=== PATIENT | male | born 1960 | race Caucasian/White ===

== ENCOUNTER 2017-04-25 18:35 | Inpatient (IN) | payer OTHER ==
--- NOTE | 2017-04-25 19:16 | CPEKG ---
Heart Rate: 74 RR Interval: 811 P-R Interval: 196 QRSD Interval: 94 QT Interval: 408 QTC Interval: 453 P [place]: 14 QRS [place]: 3 T Wave [place]: 85 EKG Severity - BORDERLINE ECG - EKG Impression: SINUS RHYTHM EKG Impression: PROBABLE LEFT ATRIAL ABNORMALITY EKG Impression: BORDERLINE R WAVE PROGRESSION, ANTERIOR LEADS Electronically Signed By: Karen Pedraza 25-Apr-2017 19:37:40
--- NOTE | 2017-04-25 19:30 | EDPHY ---
H & P Time Seen by Provider: 04/25/17 19:13 HPI/ROS: CHIEF COMPLAINT: Chest pain HISTORY OF PRESENT ILLNESS: 57 y/o male with cardiomyopathy presents with chest pressure. Onset of substernal pressure with exertion 6 weeks ago. Chest pain has gradually worsened and now occurs with walking short distances. while pushing a shopping cart for about 20ft today, he had chest pressure. He stopped and the cp resolved in a few minutes. His symptoms typically resolve within a few minutes with rest. No chest pain at rest. He is currently asymptomatic lying in bed. He has had left-sided chest pain for years, generally when lying down, but his current chest discomfort is different. He denies prior cardiac history or history of diabetes, hypertension, or hyperlipidemia, and he does not use tobacco products. He denies fever, recent illness or trauma, nausea, vomiting, syncope, diaphoresis or other associated symptoms. REVIEW OF SYSTEMS: A 10 point review of systems was performed and is negative with the exception of the elements mentioned in the history of present illness. Past Medical/Surgical History: Cardiomyopathy Social History: . at bedside. Nonsmoker. Lives in [place]. Smoking Status: Never smoked Physical Exam: General Appearance: Alert, pleasant Eyes: Pupils equal and round, no conjunctival pallor or injection ENT, Mouth: Mucous membranes moist Neck: Normal inspection Respiratory: Lungs are clear to auscultation Cardiovascular: Regular rate and rhythm Gastrointestinal: Abdomen is soft and non-tender Neurological: A&O, nonfocal, normal gait Skin: Warm and dry, no rash Extremities: Nontender, no pedal edema Psychiatric: Mood and affect normal Constitutional: Initial Vital Signs Temperature (C) 36.5 C 04/25/17 18:41 Heart Rate 70 04/25/17 18:41 Respiratory Rate 16 04/25/17 18:41 Blood Pressure 157/91 H 04/25/17 18:41 O2 Sat (%) 96 04/25/17 18:41 O2 Delivery Mode Room Air Allergies/Adverse Reactions: No Known Allergies Allergy (Unverified 04/25/17 18:44) Home Medications: Medication Instructions Recorded Allopurinol [Zyloprim] 300 mg PO DAILY 04/25/17 Indomethacin [Indocin 25 mg (*)] 50 mg PO DAILY 04/25/17 Medical Decision Making - Diagnostics EKG Interpretation: EKG interpreted by me reveals sinus rhythm, rate 74, PLAA, borderline R wave progression in ant. leads. Imaging Results: Chest x-ray independently reviewed by me: Cardiomegaly Imaging: I viewed and interpreted images myself ED Course/Re-evaluation: 57 y/o male presents with several week history of substernal chest pressure with exertion, c/w unstable angina. Plan to administer 325mg PO aspirin. IV established. Stat EKG reveals no evidence of ischemia or dysrhythmia. Recommended admission for further evaluation of the patient's chest pain and likely cardiac catheterization. 19:45 Consulted with hospitalist service. Dr. Patel accepts admission for chest pain. 19:[address] Maldonado, lead tinner. He will consult the patient. Troponin 0.046, indeterminate. Pt asymptomatic throughout his emergency department stay. 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 Differential Diagnosis: Differential diagnosis includes though it is not limited to pneumonia, pneumothorax, pulmonary embolism, aortic dissection, pericarditis, acute coronary syndrome. - Data Points Laboratory Results: Laboratory Results 04/25/17 19:30 04/25/17 19:30 Medications Given: Morphine Sulfate (Morphine) 1 - 2 mg IVP Q1HR PRN PRN Reason: Pain, Severe Unable to Take PO Stop: 05/05/17 21:37 Last Admin: 04/26/17 15:39 Dose: 2 mg Nitroglycerin (Nitrostat) 0.4 mg SL PRN PRN PRN Reason: Chest Pain Stop: 10/23/17 11:30 Last Admin: 04/26/17 15:32 Dose: 0.4 mg Discontinued Medications Aspirin (Aspirin) 324 mg PO EDNOW ONE Stop: 04/25/17 19:37 Last Admin: 04/25/17 19:44 Dose: 324 mg Aspirin Buffered (Aspirin Ec) 325 mg PO ONCALL ONE Stop: 04/26/17 11:32 Last Admin: 04/26/17 15:33 Dose: Not Given Diazepam (Valium) 5 mg PO ONCALL ONE Stop: 04/26/17 11:32 Last Admin: 04/26/17 15:33 Dose: Not Given Diphenhydramine HCl (Benadryl) 25 mg PO ONCALL ONE Stop: 04/26/17 11:32 Last Admin: 04/26/17 15:32 Dose: Not Given Famotidine (Pepcid) 20 mg PO ONCALL ONE Stop: 04/26/17 11:32 Last Admin: 04/26/17 15:32 Dose: Not Given Departure - Departure [facility] Acute Clinical Impression: Unstable angina Chest pain Qualifiers: Chest pain type: precordial pain Qualified Code(s): R07.2 - Precordial pain Condition: Fair Report Scribed for: Karen Pedraza Report Scribed by: Eleni Baumann Date of Report: 04/25/17 Time of Report: 19:27 Physician Review and Approval Statement: 04/25/17 19:27 Portions of this note were transcribed by a medical sales. I personally performed a history, physical exam, medical decision making, and confirmed accuracy of information the transcribed note.
[2017-04-25] MEDS ORDERED: ASPIRIN 81 MG CHEWABLE TAB PO ONE (19:36)
[2017-04-25 19:39] LABS: PLATELET COUNT 221 10^3/uL (150-400)
[2017-04-25] MEDS ORDERED: ONDANSETRON 4 MG/2 ML VIAL IVP PRN (21:38)
[2017-04-25] MEDS ORDERED: ONDANSETRON DISINTEGRATING 4 MG TAB PO PRN (21:38)
[2017-04-25] MEDS ORDERED: ACETAMINOPHEN 325 MG TAB PO PRN (21:38)
--- NOTE | 2017-04-25 21:54 | GHP ---
[f rep st] HISTORY AND PHYSICAL DATE OF ADMISSION: 04/25/2017 CHIEF COMPLAINT: Chest pain. HISTORY OF PRESENT ILLNESS: A 57-year-old male, who presents with 2 month history of chest pain with exertion. He says this is pressure-like or is unable to completely describe it. He says it is in t he center of his chest, not the left side and occurs reliably every time he walks several feet and it goes away with rest. He also has a little bit of chest pain at baseline but he says this is differe nt and has been there for some time. He has a history of a "cardiomyopathy" 30 years ago, but unsure about what the details of that are. No fevers or chills. He does have markedly decreased exercise tolerance due to his chest pain. REVIEW OF SYSTEMS: A 10-point review was obtained, otherwise was negative. PAST MEDICAL HISTORY: Cardiomyopathy, gout. MEDICATIONS: None. SOCIAL HISTORY: No smoking, 2 beers per day. FAMILY HISTORY: Positive for coronary disease and stroke. PHYSICAL EXAMINATION: VITAL SIGNS: Afebrile, blood pressure is 141/96, heart rate is 69, oxygen sat uration is 92% on room air. GENERAL: The patient is well developed, no apparent distress. HEENT: Nonicteric sclerae. Extraocular movements intact. Moist mucous membranes. NECK: Supple. No thyro megaly. LUNGS: Good effort. Clear to auscultation bilaterally. CARDIOVASCULAR: Regular rate and rhythm. No murmurs, gallops. ABDOMEN: Positive bowel sounds. Soft, nontender, nondistended. No h epatosplenomegaly. EXTREMITIES: No clubbing, cyanosis, or edema. SKIN: Without rash dry intact. NEUROLOGIC: Alert and oriented x3. Moving all 4 extremities equally. PSYCH: Normal mood and affec t. LABS: CBC is normal. Chemistries normal. There is a troponin that is elevated at 0.046. EKG perso vika reviewed and interpreted does show some ST-segment elevations in the anterior leads. ASSESSMENT: This is a 57-year-old male presenting with most likely unstable angina. PLAN: Unstable angina. Cardiology has been consulted. The patient does not have chest pain at rest and it has been going on for some time. I will not start on heparin but will make n.p.o. for probab le angiogram tomorrow. Cardiology has already been consulted. /[id number]/MODL
--- NOTE | 2017-04-26 09:05 | CPEKG ---
Heart Rate: 76 RR Interval: 789 P-R Interval: 188 QRSD Interval: 92 QT Interval: 400 QTC Interval: 450 P [place]: 18 QRS [place]: 1 T Wave [place]: 74 EKG Severity - BORDERLINE ECG - EKG Impression: SINUS RHYTHM EKG Impression: PROBABLE LEFT ATRIAL ABNORMALITY EKG Impression: LOW VOLTAGE IN FRONTAL LEADS EKG Impression: BORDERLINE R WAVE PROGRESSION, ANTERIOR LEADS Electronically Signed By: Judit Arias 26-Apr-2017 10:37:52
--- NOTE | 2017-04-26 10:57 | PDCARCONS ---
Cardiology Consult Reason for Consult: Chest discomfort/pressure (not pain) Chief Complaint: Chest tightness - progressive Requesting Physician: Hospitalists History of Present Illness: Patient is a 57 y/o male with unremarkable past cardiovascular history (no CAD, HTN, HLP, or DM), who presents to [facility] ER after being seen by PCP (Dr. Go Goodwin ) in the office, with recommendations for patient to be worked up in the ER. Work up in the ER setting with mild elevation in Troponin noted (0.04), but grossly normal ECG. Given the symptoms (chest pressure) and the troponin, the patient was admitted to the PCU. Hospitalist team saw the patient, and recommended coronary angiography with preceding cardiology consultation. In speaking with the patient today, chest discomfort is pressure, not pain. Location is just beneath the manubrium of the sternum. No radiation of the discomfort into the shoulder, neck, or jaw today. No fevers or chills. No PND or orthopnea. Symptoms have become more notable with less activity. Over the past six months, there has been progression of the symptoms. No lower extremity swelling has been noted. No dizziness or lightheadedness. No syncope. History of "thick heart" with echocardiography in the past (last echo was over 7 years ago with [facility]). Angiography in remote past without lluvia pathology noted. At present, the patient is able to have symptoms with very limited activity. Patient stated that the symptoms have been noted (and progressive over the past two months), but this summer, the patient thought back to his inability to mow a small lawn without needing to stop. No regular or routine exercise (given these symptoms). was present with the patient in the room today. History Information - Allergies/Home Medication List Allergies/Adverse Reactions: No Known Allergies Allergy (Unverified 04/25/17 18:44) Home Medications: Allopurinol [Zyloprim] 300 mg PO DAILY 04/25/17 [Last Taken 04/25/17] Indomethacin [Indocin 25 mg (*)] 50 mg PO DAILY 04/25/17 [Last Taken 04/25/17] I have personally reviewed and updated: family history, medical history, social history, surgical history Past Medical History: - Past Medical History Additional medical history: "cardiomyopathy" (thick heart) - Family History Positive for: CAD, hypertension, stroke - Social History Smoking Status: Never smoked Alcohol Use: Occasionally Drug Use: None Cardiac History - Cardiac History Cardiac Risk Factors: male Timing/Duration: Weeks Severity: moderate Severity Scale: 10 Location: substernal Activities at Onset: activity Modifying Factors: improves with: lying down, rest Physical Exam Physical Exam: Temp Pulse Resp BP Pulse Ox 36.8 C 83 19 125/82 H 95 04/26/17 09:01 04/26/17 09:01 04/26/17 09:01 04/26/17 09:01 04/26/17 09:01 Constitutional: no apparent distress, appears nourished, obese Eyes: PERRL Ears, Nose, Mouth, Throat: moist mucous membranes Cardiovascular: regular rate and rhythym, systolic murmur, pulses symmetric bilaterally, No JVD, No edema Peripheral Pulses: 2+: dorsalis-pedis (R), dorsalis-pedis (L) Respiratory: no respiratory distress, no rales or rhonchi, clear to auscultation Gastrointestinal: normoactive bowel sounds Skin: warm, No rash Musculoskeletal: full muscle strength, no muscle tenderness, normal joint ROM Neurologic: AAOx3, sensation intact bilaterally, CN II-XII Intact Psychiatric: interacting appropriately, not anxious, not encephalopathic Lab and Imaging 04/25/17 19:30 04/25/17 19:30 WBC 7.02 10^3/uL (3.80-9.50) 04/25/17 19:30 RBC 4.94 10^6/uL (4.40-6.38) 04/25/17 19:30 Hgb 15.7 g/dL (13.7-17.5) 04/25/17 19:30 Hct 44.5 % (40.0-51.0) 04/25/17 19:30 MCV 90.1 fL (81.5-99.8) 04/25/17 19:30 MCH 31.8 pg (27.9-34.1) 04/25/17 19:30 MCHC 35.3 g/dL (32.4-36.7) 04/25/17 19:30 RDW 13.0 % (11.5-15.2) 04/25/17 19:30 Plt Count 221 10^3/uL (150-400) 04/25/17 19:30 MPV 10.6 fL (8.7-11.7) 04/25/17 19:30 Neut % (Auto) 55.0 % (39.3-74.2) 04/25/17 19:30 Lymph % (Auto) 34.6 % (15.0-45.0) 04/25/17 19:30 [place] % (Auto) 6.7 % (4.5-13.0) 04/25/17 19:30 Eos % (Auto) 2.8 % (0.6-7.6) 04/25/17 19:30 Baso % (Auto) 0.6 % (0.3-1.7) 04/25/17 19:30 Nucleat RBC Rel Count 0.0 % (0.0-0.2) 04/25/17 19:30 Absolute Neuts (auto) 3.86 10^3/uL (1.70-6.50) 04/25/17 19:30 Absolute Lymphs (auto) 2.43 10^3/uL (1.00-3.00) 04/25/17 19:30 Absolute Monos (auto) 0.47 10^3/uL (0.30-0.80) 04/25/17 19:30 Absolute Eos (auto) 0.20 10^3/uL (0.03-0.40) 04/25/17 19:30 Absolute Basos (auto) 0.04 10^3/uL (0.02-0.10) 04/25/17 19:30 Absolute Nucleated RBC 0.00 10^3/uL (0-0.01) 04/25/17 19:30 Immature Gran % 0.3 % (0.0-1.1) 04/25/17 19:30 Immature Gran # 0.02 10^3/uL (0.00-0.10) 04/25/17 19:30 Sodium 141 mEq/L (134-144) 04/25/17 19:30 Potassium 4.2 mEq/L (3.5-5.2) 04/25/17 19:30 Chloride 105 mEq/L (97-110) 04/25/17 19:30 Carbon Dioxide 23 mEq/l (22-31) 04/25/17 19:30 Anion Gap 13 mEq/L (8-16) 04/25/17 19:30 BUN 16 mg/dL (7-23) 04/25/17 19:30 Creatinine 1.0 mg/dL (0.7-1.3) 04/25/17 19:30 Estimated GFR > 60 04/25/17 19:30 Glucose 89 mg/dL (70-100) 04/25/17 19:30 Hemoglobin A1c 6.2 % (4.0-6.0) H 04/26/17 07:10 Estim Average Glucose 131 mg/dL (68-126) H 04/26/17 07:10 Calcium 9.9 mg/dL (8.5-10.4) 04/25/17 19:30 Troponin I 0.041 ng/mL (0.000-0.034) H 04/26/17 07:10 Triglycerides 173 mg/dL (40-150) H 04/26/17 07:10 Cholesterol 256 mg/dL (140-220) H 04/26/17 07:10 Cholesterol Risk Factr 1.8 (0.2-1.0) H 04/26/17 07:10 LDL Cholesterol, Calc 186 mg/dL (80-100) H 04/26/17 07:10 LDL Risk Factor 1.6 (0.2-1.0) H 04/26/17 07:10 VLDL Cholesterol 34 mg/dL (8-25) H 04/26/17 07:10 Non-HDL Cholesterol 220 mg/dL (90-129) H 04/26/17 07:10 HDL Cholesterol 36 mg/dL (40-65) L 04/26/17 07:10 LDL/HDL Ratio 5.17 RATIO (1.00-3.64) H 04/26/17 07:10 Cholesterol/HDL Ratio 7.11 RATIO (1.00-4.97) H 04/26/17 07:10 Visualized and Interpreted Chest x-ray results: Yes Chest X-ray Interpretation: normal, normal heart size Visualized and Interpreted EKG results: Yes EKG Interpretation: Positive for: normal sinsus rhythm, NS ST wave abnormalities Telemetry: normal sinus rhythm Echocardiogram: normal LVEF, moderate to severe LVH, no clear valve pathology A/P Assessment: Patient is a 57 y/o male with history of "cardiomyopathy", thought to be hypertrophic, but this word did not resonate with the patient, and HLP ( untreated), who presented to PCP with complaints of chest pressure (no pain). Progressive symptoms have been noted, and activity has been severely limited by the presence of this symptom. Symptom has been notable for the past six week, but further discussion with the patient is more along the lines of months to years. Troponin elevation beyond baseline has been noted (<0.05) with non specific ST/T wave changes noted. Echocardiography today with moderate to severe LVH noted. Gradients at rest were not noted to be extremely elevated. No stress testing in recent past. Last echocardiogram was likely over seven years ago. Hospitalists with desire for angiography, which we feel is appropriate given HLP, age, sex, ECG changes, troponin elevation, and noted symptoms. Plan: Several options were discussed with the patient - non invasive MPI testing and angiography. Risks and benefits of both were addressed. More conclusive test is angiography. Consents have been signed. Will proceed with this diagnostic procedure. Given the elevation in HLP noted, would begin statins (Crestor at 10 mg is recommended). ASA therapy (81 mg per day) is also recommended for this male over the age of 50.
[2017-04-26] MEDS ORDERED: DIAZEPAM 5 MG TAB PO ONE (11:31)
[2017-04-26] MEDS ORDERED: TEMAZEPAM 15 MG CAP PO PRN (11:31)
[2017-04-26] MEDS ORDERED: diphenhydrAMINE 25 MG CAP PO ONE (11:31)
[2017-04-26] MEDS ORDERED: NITROGLYCERIN 0.4 MG BTL SL PRN (11:31)
[2017-04-26] MEDS ORDERED: FAMOTIDINE 20 MG TAB PO ONE (11:31)
[2017-04-26] MEDS ORDERED: ASPIRIN EC 325 MG TAB PO ONE (11:31)
--- NOTE | 2017-04-26 11:44 | CPEKG ---
Heart Rate: 80 RR Interval: 750 P-R Interval: 192 QRSD Interval: 92 QT Interval: 388 QTC Interval: 448 P [place]: 15 QRS [place]: -16 T Wave [place]: 88 EKG Severity - ABNORMAL ECG - EKG Impression: SINUS RHYTHM EKG Impression: LEFT ATRIAL ABNORMALITY EKG Impression: BORDERLINE LEFT AXIS DEVIATION EKG Impression: LOW VOLTAGE IN FRONTAL LEADS EKG Impression: CONSIDER ANTERIOR INFARCT Electronically Signed By: Judit Arias 26-Apr-2017 17:03:35
[2017-04-26] MEDS ORDERED: NS 1,000 ML IV SCH (11:45)
[2017-04-26] MEDS ORDERED: MIDAZOLAM 2 MG/2 ML VIAL ONE (12:06)
[2017-04-26] MEDS ORDERED: LIDOCAINE 1% 300 MG/30 ML SDV ONE (12:06)
[2017-04-26] MEDS ORDERED: fentaNYL 100 MCG/2 ML INJ ONE (12:06)
[2017-04-26] MEDS ORDERED: IOPAMIDOL (ISOVUE-370) 150 ML BTL IV ONE (12:07)
--- NOTE | 2017-04-26 12:26 | PDPROPOC ---
Sedation Plan of Care Sedation Plan of Care: vital signs stable, mental status noted, patient educated of risks, benefits, alternatives, patient can tolerate sedation ASA Classification: ASA 2 Planned drugs: fentanyl, midazolam Mallampati Score: Class 1 Mallampati Reference Image: Patient passed 3-3-2 rule?: Yes
--- NOTE | 2017-04-26 14:11 | ASMTCMCOM ---
CM Note CM Note Notes: Reviewed chart,pt here with chest pain, will have angiogram today. anticipate dc home independantly when medically stable. CM avail for any changes/needs. Date Signed: 04/26/2017 02:11 PM Electronically Signed By:Berenice Cervantes RN
[2017-04-26] MEDS ORDERED: ATROPINE SULFATE 1 MG/10 ML SYR IVP PRN (14:44)
--- NOTE | 2017-04-26 14:50 | PDDXCAT ---
Diagnostic Cath Note - . Date: 04/26/17 Hatchery Supervisor: Yazmin Indication: Class III or IV angina, which improves to class I/II w medical therapy - Procedure Access: right groin Procedure: left heart catheterization, coronary angiography - Materials Left Heart Cath size: 6F Left Heart Cath materials: JL4.0, JR4.0 - Findings-Left Heart Catheterization LM: Medium diameter vessel, moderate length. Distal lesion of 40-50% LAD: Medium diameter vessel with early D1 and D2 take off. In the ostium of the LAD (involved with the distal LM), there was an 80% lesion. Diffuse disease of 40-50% was noted. There was a 50% mid LAD lesion noted. LCX: Medium caliber vessel. Principal branch was OM2 with 80% proximal lesion and 60% mid lesion. OM1 was very small. Mid to distal LCX was small to medium caliber vessel. RCA: Dominant vessel with large caliber. In the prox/mid location, there is a 95% stenosis noted. Right to left collaterals were noted. EDP: not assessed LVEF: not assessed (by echo, normal LVEF was noted with moderate to severe LVH) Wall motion: not assessed Complications: none Estimated blood loss: <50ml Closure method: manual pressure Assessment: 57 y/o male with likely hypertrophic cardiomyopathy, HLP (untreated) , and difficult, critical, multivessel CAD (LM, LAD, LCX/OM, and RCA). I did not perform left ventriculogram given echo with moderate to severe concentric left ventricular hypertrophy and normal LVEF (so no need for potential arrhythmic pigtail catheter placement). Surgery consulted for CABG Plan: CABG evaluation given the severe, multi vessel CAD noted. Intervention: none Patient Problems: Problems Problem Status Onset Chest pain Acute
--- NOTE | 2017-04-26 15:40 | HOSPPROG ---
Hospitalist Progress Note Assessment/Plan: DIAGNOSES: -progressive unstable angina pectoralis -diffuse severe coronary artery disease on angiogram today, 95% right, 80% lad and circ, 50% left main -severe LVH or other hypertrophic cardiomyopathy based on echo done elsewhere recently; preserved ejection fraction -untreated hyperlipidemia LDL 180 -"pre diabetes" suspected insulin resistance with hemoglobin A1c 6.2 I reviewed the patient's progress, test results, and care plan in detail with Dr. Arce today. Surgical assessment is clearly indicated I reviewed the angiogram results with the patient and his family at the bedside today and discuss with them that he will need revascularization, he will probably need to have more conversation with Dr. 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 Aburto is planning on CABG in 2 days -monitor blood sugars, diabetic diet SUBJECTIVE: The patient is back from coronary angiography at this time. Currently he is lying flat on his back for healing time for his groin access, complaints of a left-sided anterior chest pain which he says he has gotten whenever he lies on his back for the last 20 years. He has had multiple assessments for this and it has no known cost and is not related to his angina, currently what he feels is typical of this chronic symptom. He had been given some nitroglycerin and some morphine by his nurse which have not improved the symptom. He is not having any of what feels like his typical exertional angina at this time with no shortness of breath and no nausea either. Otherwise feels fine. No discomfort at his groin access site OBJECTIVE Vitals reviewed: Stable without fever [employer], my review: Sinus Exam: alert oriented looks uncomfortable due to the chest pain as mentioned above skin warm dry color ok resps not labored lungs clear BSs heart regular abd soft nondistended nontender, bowel sounds present limbs warm, no edema iv site ok Laboratory data: Troponins flat at 0.04, otherwise can on CBC unremarkable. Hemoglobin A1c at 6 Coronary angiography done today by Dr. Arce, I reviewed with Dr. Arce and there is diffuse severe coronary artery disease in LAD right circ and left main. Angiography was well tolerated Repeat EKG today, my review of tracing sinus rhythm with no acute ischemic in changes low inferior lead voltages Objective: Vital Signs Temp Pulse Resp BP Pulse Ox 36.6 C 80 17 144/85 H 94 04/26/17 11:33 04/26/17 11:33 04/26/17 11:33 04/26/17 11:33 04/26/17 11:33 04/25/17 04/26/17 04/27/17 06:59 06:59 06:59 Intake Total 100 Balance 100 - Time Spent With Patient Time Spent with Patient: greater than 35 minutes Time Spent with Patient: Greater than 35 minutes spent on this patients care, greater than 50% of time spent counseling, educating, and coordinating care regarding the above mentioned plan. ICD10 Worksheet Patient Problems: Problems Problem Status Onset Chest pain Acute
--- NOTE | 2017-04-26 16:48 | GCON ---
[f rep st] CONSULTATION DATE OF CONSULTATION: 04/26/2017 IMPRESSION: 1. Non-Q-wave infarction with severe 3-vessel disease. 2. HOCM without systolic anterior motion. 3. Uncontrolled hypertension. 4. Uncontrolled hypercholesterolemia. 5. Gout. RECOMMENDATIONS: This gentleman should stay in house and undergo coronary artery revascularization. Consideration could be given to stress echo on the table during surgery to see if we can elicit outf low obstruction, in which case I would proceed with septal myectomy at the same time. Dr. Arshad will be covering in my absence and will proceed with surgery in the next day or 2 unless symptoms change this evening while I am on-call. Patient is still somewhat somnolent, although the and son were present, very cooperative, very p leasant and fully informed by Cardiology. The previous medical history is for known thickened heart with cardiomyopathy for which he quit medic ations, presumably beta-blockers, and has had no followup. The suspects he has uncontrolled hyp ertension. He does have moderate alcohol abuse with at least 4 beers per day on a regular daily basi s without withdrawal symptoms or history of withdrawal. ALLERGIES: Has no known allergies. MEDICATIONS: On admission were Zyloprim and Indocin. SOCIAL HISTORY: He never smoked. FAMILY HISTORY: Positive for coronary disease, hypertension, stroke. PHYSICAL EXAMINATION: GENERAL: Obese gentleman lying supine in bed. No apparent distress. VITAL S IGNS: Blood pressure is 160/110, heart rate 76, respirations 12, nonlabored. HEENT: Normocephalic, ESTHER, EOMI. NECK: Without bruit. HEART: Rate is regular without murmur, S3 or S4. LUNGS: Clear. A BDOMEN: Protuberant, nontender. Bowel sounds are active. EXTREMITIES: Have 2+ pedal pulses. No eddi ma. No varicosities. RECTAL AND GENITAL: Deferred. Please see cath report for details. /[id number]/MODL
--- NOTE | 2017-04-26 17:11 | ASMTCMCOM ---
CM Note CM Note Notes: Pt's angiogram today showed sever CAD per progress note; Dr Aburto has consulted and pt will likely go for OHS in next couple days. Pt's and son here today and were able to discuss w/. DUANE w/f. Date Signed: 04/26/2017 05:10 PM Electronically Signed By:Berenice Cervantes RN
--- NOTE | 2017-04-26 19:46 | HOSPPROG ---
Hospitalist Progress Note Assessment/Plan: DIAGNOSES: -progressive unstable angina pectoralis -diffuse severe coronary artery disease on angiogram today, 95% right, 80% lad and circ, 50% left main -severe LVH or other hypertrophic cardiomyopathy based on echo done elsewhere recently; preserved ejection fraction -untreated hyperlipidemia LDL 180 -"pre diabetes" suspected insulin resistance with hemoglobin A1c 6.2 I reviewed the patient's progress, test results, and care plan in detail with Dr. Arce today. Surgical assessment is clearly indicated I reviewed the angiogram results with the patient and his family at the bedside today and discuss with them that he will need revascularization, he will probably need to have more conversation with Dr. Aburto -he does not have any recollection of his previous conversation today likely due to persisting affects of sedation for his angio Patient will need to remain hospitalized until his bypass surgery in 2 days, will need changed inpatient status PLANS: -continue antianginal therapies and aspirin -statin therapy -continue cardiac telemetry monitor -inpatient Cardiac surgery consultation, it sounds like Dr. Aburto is planning on CABG in 2 days -monitor blood sugars, diabetic diet SUBJECTIVE: The patient is back from coronary angiography at this time. Currently he is lying flat on his back for healing time for his groin access, complaints of a left-sided anterior chest pain which he says he has gotten whenever he lies on his back for the last 20 years. He has had multiple assessments for this and it has no known cost and is not related to his angina, currently what he feels is typical of this chronic symptom. He had been given some nitroglycerin and some morphine by his nurse which have not improved the symptom. He is not having any of what feels like his typical exertional angina at this time with no shortness of breath and no nausea either. Otherwise feels fine. 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 Hemoglobin A1c at 6 Coronary angiography done today by Dr. Arce, I reviewed with Dr. Arce and there is diffuse severe coronary artery disease in LAD right circ and left main. Angiography was well tolerated Repeat EKG today, my review of tracing sinus rhythm with no acute ischemic in changes low inferior lead voltages Objective: Vital Signs Temp Pulse Resp BP Pulse Ox 36.7 C 84 18 150/103 H 93 04/26/17 15:57 04/26/17 15:57 04/26/17 15:57 04/26/17 15:57 04/26/17 15:57 04/25/17 04/26/17 04/27/17 06:59 06:59 06:59 Intake Total 100 Balance 100 ICD10 Worksheet Patient Problems: Problems Problem Status Onset Chest pain Acute
[2017-04-27] MEDS: ATORVASTATIN CALCIUM 40 MG TAB PO SCH (09:03)
--- NOTE | 2017-04-27 09:23 | PDCARPN ---
Cardiology Progress Note Chief Complaint: No cardiovascular complaints (no chest pains or pressure) Assessment/Plan: Assessment: Patient is a 57 y/o male with history of "cardiomyopathy" in the remote past with complaints of chest "pressure". Work up with this admission has revealed both HLP and critical CAD by angiography. Echocardiography with moderate to severe LVH (concerning for HOCM). Patient is scheduled for multivessel CABG tomorrow. No cardiovascular complaints were voiced this morning. No chest pains or pressure, no PND or orthopnea. was present with the patient in the room today. Plan: (1) CABG tomorrow (2) Preoperative assessments today are pending (3) Would being therapy on statins given the elevation in FLP that are noted (4) Cardiac rehab to see patient post operatively (5) Lifestyle changes will be needed (diet, exercise, stressors from work, sleep patterns, weight loss) I did speak with the patient's son about HLP and the HOCM concerns yesterday. Subjective: No cardiovascular complaints today Reviewed/Discussed With: family, hospitalist, multidisciplinary team Objective: Vital Signs (8 Hrs) Temp Pulse Resp BP Pulse Ox 04/27/17 07:32 37.1 C 75 16 121/70 H 92 04/27/17 03:00 37.1 C 73 16 127/75 H 91 L Intake/Output (24 Hrs) 04/26/17 04/27/17 04/28/17 05:59 05:59 05:59 Intake Total 100 Balance 100 Intake: Oral (ml) 100 Other: Weight 103.6 kg Intake Quantity Yes Sufficient Number of Voids Toilet 1 Result Diagrams: 04/25/17 19:30 04/25/17 19:30 Cardiac Labs: Cardiac Lab Results (72 Hrs) 04/26/17 04/25/17 07:10 23:59 Troponin I 0.041 H 0.042 H Telemetry: Normal sinus rhythm at 70-75 bpm - Physical Exam Constitutional: WDWN, healthy appearing, no apparent distress, obese Eyes: PERRL, EOMI Ears, Nose, Mouth, Throat: moist mucous membranes Cardiovascular: regular rate and rhythm, no rubs, systolic murmur, pulses symmetric bilat, No jugular vein distention Peripheral Pulses: 2+: dorsalis-pedis (R), dorsalis-pedis (L) Respiratory: clear to auscultate bilat, no crackles, no wheezes Gastrointestinal: normoactive bowel sounds Skin: no rashes, no edema Musculoskeletal: no muscular tenderness Neurologic: AAOx3, CN II-XII grossly intact Psychiatric: cooperative, interactive, following commands ICD10 Worksheet Patient Problems: Problems Problem Status Onset Chest pain Acute Unstable angina Acute
--- NOTE | 2017-04-27 10:00 | ECHO ---
[email or web address] [address] [address] Main: [phone] Fax: Transthoracic Echocardiogram Name: LUIS ALBERTO HUA MR#: [id number] Study Date: 04/26/2017 Study Time: 10:25 AM Date of : 1960 Age: 57 year(s) Height: 175.3 cm (69 in.) Weight: 103.42 kg (228 lb.) BSA: 2.18 m2 Gender: Male Examination: Echo Indication: Chest Pain Image Quality: Contrast: Requested by: Paul Arce BP: 125 mmHg/82 mmHg Heart Rate: Rhythm: Normal sinus rhythm Indication: Chest Pain Procedure Staff Customer Field Representative: Gary Wilhelm Reading Physician: Cruz Cramer Requesting Provider: Conclusions: Normal size left ventricle. Severe concentric LV hypertrophy. Normal global systolic LV function. EF is 70 %. No regional wall motion abnormality. Diastolic dysfunction is present. . There is no obvious LVOT gradient by doppler and colorflow doppler.. Trivial mitral valve regurgitation. No pericardial effusion. Measurements: Chambers Valvular Assessment AV/MV Valvular Assessment TV/PV Normal Normal Normal Name Value Range Name Value Range Name Value Range Ao Mariana (MM): 3.1 cm (2.2 cm-3.7 AV Vmax: 1.40 m/s (1 m/s-1.7 PV Vmax: 1.17 m/s (0.6 m/s-0.9 cm) m/s) m/s) IVSd (2D): 2.3 cm (0.6 cm-1.1 AV maxP mmHg ( - ) PV PGmax: 5 mmHg ( - ) cm) AV meanP mmHg ( - ) LVDd (2D): 4.4 cm (4.2 cm-5.9 LVOT Vmax: 0.91 m/s (0.7 m/s-1.1 cm) m/s) LVDs (2D): 2.9 cm (2.1 cm-4 MV E Vmax: 0.37 m/s ( - ) cm) MV A Vmax: 0.62 m/s ( - ) LVPWd (2D): 1.8 cm (0.6 cm-1 MV E/A: 0.60 ( - ) cm) LVEF (MM): 70 (>=55 %) Continued Measurements: Chambers Valvular Assessment AV/MV Name Value Name Value Patient: LUIS ALBERTO HUA Study Date: 04/26/2017 Page 1 of 2 10:25 AM LADs Lon.6 cm MV E' Septal: 0.04 m/s LA Area: 16.5 cm2 MV E/E' Septal: 9.70 MV E/E' Lateral: 8.80 Findings: Left Ventricle: Normal size left ventricle. Severe concentric LV hypertrophy. Normal global systolic LV function. EF is 70 %. No regional wall motion abnormality. Diastolic dysfunction is present. . There is no obvious LVOT gradient by doppler and colorflow doppler.. Right Ventricle: Normal size right ventricle. Left Atrium: The left atrium is normal in size. Right Atrium: The right atrium is normal in size. Mitral Valve: The mitral valve is normal in appearance and function. Trivial mitral valve regurgitation. Aortic Valve: The aortic valve is tri-leaflet. The aortic valve is normal in appearance and function. Tricuspid Valve: The tricuspid valve is normal in appearance and function. Pulmonic Valve: The pulmonic valve is normal in appearance and function. Trivial pulmonic valve regurgitation. Aorta: The aorta is normal. Pericardium: No pericardial effusion. (No Signature Object) Patient: LUIS ALBERTO HUA Study Date: 04/26/2017 Page 2 of 2 10:25 AM [id number]
[2017-04-27] MEDS: ALLOPURINOL 300 MG TAB PO SCH (10:22)
[2017-04-27] MEDS ORDERED: INDOMETHACIN 25 MG CAP PO SCH (12:00)
--- NOTE | 2017-04-27 13:17 | HOSPPROG ---
Hospitalist Progress Note Assessment/Plan: Unstable angina in setting of critical multi-vessel CAD - trop flat. Chest pain free today. -CABG tomorrow per CV surgery -start ASA -cont statin Hypertrophic CM - cards following Hypertension - fair control. likely warrants BB at some point post-operatively , will defer to CV surg Hyperlipidemia - LDL 186, cont statin. Gout - cont allopurinol and indocin H/O etoh - no e/o withdrawal Full code Dispo - cont inpt Subjective: Pt feels fine. No CP or SOB. UP in chair, working. Objective: Vital Signs Temp Pulse Resp BP Pulse Ox 36.5 C 86 12 151/91 H 91 L 04/27/17 11:35 04/27/17 11:35 04/27/17 11:35 04/27/17 11:35 04/27/17 11:35 - Physical Exam Constitutional: no apparent distress Eyes: PERRL Ears, Nose, Mouth, Throat: moist mucous membranes Cardiovascular: regular rate and rhythym Respiratory: no respiratory distress, clear to auscultation Gastrointestinal: normoactive bowel sounds, soft, non-tender abdomen Skin: warm Musculoskeletal: full muscle strength Neurologic: AAOx3 Psychiatric: interacting appropriately ICD10 Worksheet Patient Problems: Problems Problem Status Onset Chest pain Acute Unstable angina Acute
[2017-04-27] MEDS: ASPIRIN EC 81 MG TAB PO SCH (14:21)
--- NOTE | 2017-04-27 17:46 | PDMN ---
Medical Necessity Medical necessity: Patient meets INPT criteria per physician note and MCG M-40 Angina, will change to S-390 CABG after surgery (progressive chest pressure/ unstable angina w/mild troponin elevation; mod to severe LVH on echo; cardiac cath shows multivessel CAD; will need inpatient monitoring until planned CABG; LOS will be > 2 midnights.)
[2017-04-27] MEDS ORDERED: CHLORHEXIDINE GLUC HIBICLENS 118 ML BTL TP SCH (21:00)
[2017-04-28] MEDS ORDERED: PROTAMINE SULFATE 50 MG/5 ML VIAL IVP ONE (04:29)
[2017-04-28] MEDS ORDERED: MILRINONE/DEXTROSE/100 ML BAG IV ONE (04:30)
[2017-04-28] MEDS ORDERED: CALCIUM CHLORIDE 1 GM/10 ML INJ ONE ×2 (04:30→04:35)
[2017-04-28] MEDS ORDERED: niCARdipine/NACL/200 ML BAG IV ONE (04:32)
[2017-04-28] MEDS ORDERED: NA BICARBONATE 50 MEQ/50 ML VIAL ONE (04:32)
[2017-04-28] MEDS ORDERED: HEPARIN 10,000 UNIT/10 ML MDV ONE ×2 (04:32→04:35)
[2017-04-28] MEDS ORDERED: DOPamine/DEXTROSE/250 ML BAG IV ONE (04:32)
[2017-04-28] MEDS ORDERED: ADENOSINE 6 MG/2 ML VIAL ONE (04:33)
[2017-04-28] MEDS ORDERED: AMIODARONE HCL 150 MG/3 ML VIAL ONE ×2 (04:33→04:36)
[2017-04-28] MEDS ORDERED: ceFAZolin 1 GM VIAL ONE (04:34)
[2017-04-28] MEDS ORDERED: ALBUMIN 5% 250 ML BOTTLE IV ONE ×2 (04:34→13:30)
[2017-04-28] MEDS ORDERED: LIDOCAINE 2% 100 MG/5 ML SYR ONE (04:35)
[2017-04-28] MEDS ORDERED: MAGNESIUM SULFATE 1 GM/2 ML VIAL ONE (04:36)
[2017-04-28] MEDS ORDERED: CITRATE DEXTROSE SOLN 500 ML BAG ONE (04:36)
[2017-04-28] MEDS ORDERED: methylPREDNISolone SOD SUCC 1 GM/8 ML VIAL ONE (04:37)
[2017-04-28] MEDS ORDERED: VERAPAMIL 5 MG, NITROGLYCERIN 2.5 MG, HEPARIN 500 UNIT, SODIUM BICARBONATE 0.2 MEQ in L... MISC ONE (06:00)
[2017-04-28] MEDS ORDERED: MUPIROCIN 2% 22 GM OINT NS ONE (06:00)
[2017-04-28] MEDS ORDERED: ceFAZolin 2 GM/SWFI 2 GM/20 ML SYR IVP ONE (06:00)
[2017-04-28] MEDS ORDERED: NOREPINEPHRINE BITARTRATE 16 MG in NS 250 ML IV ONE (06:00)
[2017-04-28] MEDS ORDERED: SODIUM BICARBONATE 20 MEQ, LIDOCAINE 1% 10 ML in NORMOSOL-R 1,000 ML MISC ONE (06:00)
[2017-04-28] MEDS ORDERED: INSULIN REGULAR HUMAN 100 UNIT in NS 100 ML IV ONE (06:00)
[2017-04-28] MEDS ORDERED: MANNITOL 25% 12.5 GM/50 ML VIAL IVP ONE (06:00)
[2017-04-28] MEDS ORDERED: PAPAVERINE HCL 60 MG in NS 100 ML IV ONE (06:00)
[2017-04-28] MEDS ORDERED: PHENYLEPHRINE HCL 50 MG in NS 250 ML IV ONE (06:00)
[2017-04-28] MEDS ORDERED: CITRATE DEXTROSE SOLN 500 ML BAG MISC ONE (06:00)
[2017-04-28] MEDS ORDERED: AMINOCAPROIC ACID 5 GM/20 ML VIAL IV ONE (06:00)
[2017-04-28] MEDS ORDERED: VANCOMYCIN 1 GM VIAL ONE (06:53)
--- NOTE | 2017-04-28 07:17 | PDHPUP ---
History & Physical Update H&P update statement: This history and physical update is based on an assessment of the patient which was completed after admission or registration (within 24 hours), but prior to the surgery/procedure. H&P update: H&P reviewed & patient examined, no change in patient's condition since H&P completed
[2017-04-28] MEDS ORDERED: MIDAZOLAM 2 MG/2 ML VIAL IVP ONE (07:53)
[2017-04-28] MEDS ORDERED: fentaNYL 250 MCG/5 ML INJ ONE ×2 (07:56)
[2017-04-28] MEDS ORDERED: PROPOFOL/EMULSION 500 MG/50 ML BOTTLE IV ONE (07:57)
[2017-04-28] MEDS ORDERED: KETAMINE 100 MG/10 ML SYR ONE (09:02)
--- NOTE | 2017-04-28 09:24 | PDANEPAE ---
ANE History of Present Illness here for CABG ANE Past Medical History - Cardiovascular History Hx Hypertension: Yes Hx Arrhythmias: No Hx Chest Pain: Yes Hx Coronary Artery / Peripheral Vascular Disease: Yes Hx CHF / Valvular Disease: No Hx Palpitations: No - Pulmonary History Hx COPD: No Hx Asthma/Reactive Airway Disease: No Hx Recent Upper Respiratory Infection: No Hx Oxygen in Use at Home: No Hx Sleep Apnea: No Sleep Apnea Screening Result - Last Documented: Positive - Endocrine History Hx Diabetes: No Hypothyroid: No Hyperthyroid: No - Renal History Hx Renal Disorders: No - Liver History Hx Hepatic Disorders: No - Neurological & Psychiatric Hx Hx Neurological and Psychiatric Disorders: No - Chronic Pain History Chronic Pain: No ANE Review of Systems Review of systems is: negative Review of Systems: - Exercise capacity Exercise capacity: <4 METS ANE Patient History - Allergies Allergies/Adverse Reactions: No Known Allergies Allergy (Unverified 04/25/17 18:44) - Home Medications Home medications: home medication list seen and reviewed Home Medications: Allopurinol [Zyloprim] 300 mg PO DAILY 04/25/17 [Last Taken 04/25/17] Indomethacin [Indocin 25 mg (*)] 50 mg PO DAILY 04/25/17 [Last Taken 04/25/17] - NPO status NPO Status: no food or drink >8 hours NPO Since - Liquids (Date): 04/28/17 NPO Since - Liquids (Time): 00:00 NPO Since - Solids (Date): 04/28/17 NPO Since - Solids (Time): 00:00 - Anes Hx Anes Hx: no prior problems - Smoking Hx Smoking Status: Never smoked - Alcohol Use Alcohol Use: Occasionally ANE Labs/Vital Signs - Labs Result Diagrams: 04/25/17 19:30 04/25/17 19:30 - Vital Signs Vital Signs: reviewed preoperatively; see RN documention for details Blood Pressure: 137/84 Heart Rate: 74 Respiratory Rate: 13 O2 Sat (%): 94 Height: 175.26 cm Weight: 99.9 kg ANE Physical Exam - Airway Neck exam: FROM Mallampati Score: Class 1 - Pulmonary Pulmonary: no respiratory distress - Cardiovascular Cardiovascular: regular rate and rhythym - ASA Status ASA Status: IV ANE Anesthesia Plan Anesthesia Plan: general endotracheal anesthesia Lines/Monitors: arterial line, central line, JUAN
[2017-04-28] MEDS ORDERED: MAGNESIUM SULF 2 GM/WATER 50 ML BAG IV ONE (11:13)
[2017-04-28] MEDS ORDERED: HYDROmorphONE/DILAUDID 2 MG/ML INJ ONE (12:12)
[2017-04-28] MEDS: ALLOPURINOL 300 MG TAB PO SCH (12:15)
[2017-04-28] MEDS: ASPIRIN EC 81 MG TAB PO SCH (12:16)
--- NOTE | 2017-04-28 12:37 | POSTOPPROG ---
Post Op Note Date of Operation: 04/28/17 Surgeon: Martínez Arshad Manager Services: Joselyn Anesthesia: GET(General Endotracheal) Pre-op Diagnosis: Coronary artery disease Post-op Diagnosis: Same Indication: CAD Procedure: CABG x 3 w/ SVG - OM, CASANOVA - LAD, skeletonized JERMAINE - RCA Findings: Severe LVH Inf/Abcess present in the surg proc area at time of surgery?: No EBL: Minimal Complications: none
[2017-04-28] MEDS ORDERED: METOCLOPRAMIDE 10 MG/2 ML VIAL IVP PRN (12:55)
[2017-04-28] MEDS ORDERED: MAGNESIUM HYDROXIDE 30 ML UDCUP PO PRN (12:55)
[2017-04-28] MEDS ORDERED: D50W 25 GM/50 ML SYR IVP PRN (12:55)
[2017-04-28] MEDS ORDERED: SODIUM CL NASAL 45 ML BTL EACHNARE PRN (12:55)
[2017-04-28] MEDS ORDERED: POTASSIUM Cl (KCl) 50 ML IV PRN (12:55)
[2017-04-28] MEDS ORDERED: ACETAMINOPHEN 650 MG SUPP PR PRN (12:55)
[2017-04-28] MEDS ORDERED: LACTULOSE 20 GM/30 ML UDCUP PO PRN (12:55)
[2017-04-28] MEDS ORDERED: PANTOPRAZOLE SODIUM 40 MG VIAL IVP ONE (12:55)
[2017-04-28] MEDS ORDERED: MAGNESIUM SULF 2 GM/WATER 50 ML IV ONE (12:55)
[2017-04-28] MEDS ORDERED: MEPERIDINE 25 MG/ML SYR IVP PRN (12:55)
[2017-04-28] MEDS ORDERED: CEPACOL LOZENGE PO PRN (12:55)
[2017-04-28] MEDS ORDERED: POLYETHYLENE GLYCOL 3350 17 GM PKT PO PRN (12:55)
[2017-04-28] MEDS ORDERED: BISACODYL 10 MG SUPP PR PRN (12:55)
[2017-04-28] MEDS ORDERED: NS 1,000 ML IV SCH (13:00)
[2017-04-28] MEDS ORDERED: niCARdipine/NACL 200 ML IV SCH (13:00)
--- NOTE | 2017-04-28 13:24 | POSTANESTH ---
Post Anesthetic Evaluation Cardiovascular Status: Normal, Stable Respiratory Status: Requires Airway Assist (intubated) Level of Consciousness/Mental Status: Unconscious Pain Control: Adequate, Prn Tx Ordered Nausea/Vomiting Control: Adequate, Prn Tx Ordered Complications Possibly Related to Anesthesia: None Noted
[2017-04-28] MEDS: ALBUMIN 5% 250 ML IV PRN ×4 (13:30→20:24)
--- NOTE | 2017-04-28 13:42 | ASMTCMCOM ---
CM Note CM Note Notes: Patient underwent surgery today. Needs to be determined. CM to follow. Date Signed: 04/28/2017 01:42 PM Electronically Signed By:Becka Tafoya RN
[2017-04-28] MEDS ORDERED: POTASSIUM Cl (KCl) 20 MEQ/100 ML BAG IV ONE (13:54)
[2017-04-28] MEDS ORDERED: ceFAZolin 2 GM/DEXTROSE 100 ML IV SCH (14:00)
[2017-04-28] MEDS: fentaNYL 100 MCG/2 ML INJ IVP PRN ×4 (14:04→22:25)
--- NOTE | 2017-04-28 15:44 | HOSPPROG ---
Hospitalist Progress Note Assessment/Plan: Pt in OR with CV surgery today. Unstable angina in setting of critical multi-vessel CAD - trop flat. Chest pain free today. -CABG today -cont asa, statin Hypertrophic CM - cards following Hypertension - fair control. likely warrants BB at some point post-operatively , will defer to CV surg Hyperlipidemia - LDL 186, cont statin. Gout - cont allopurinol and indocin H/O etoh - no e/o withdrawal Full code Dispo - cont inpt Objective: Vital Signs Temp Pulse Resp BP Pulse Ox 37 C 84 14 100/45 L 95 04/28/17 14:00 04/28/17 15:00 04/28/17 15:00 04/28/17 15:00 04/28/17 15:00 04/27/17 04/28/17 04/29/17 05:59 05:59 05:59 Output Total 1000 Balance -1000 ICD10 Worksheet Patient Problems: Problems Problem Status Onset Chest pain Acute Unstable angina Acute
[2017-04-28] MEDS: ceFAZolin 2 GM/SWFI 20 ML SYR IVP SCH (16:28)
[2017-04-28] MEDS: INSULIN REGULAR HUMAN 100 UNIT in NS 100 ML IV SCH (20:16)
[2017-04-28] MEDS: HYDROCODONE/APAP 5/325 TAB PO PRN (22:25)
[2017-04-28] MEDS: MUPIROCIN 2% 22 GM OINT NS SCH (22:44)
[2017-04-28] MEDS: SENNOSIDES/DOCUSATE SODIUM TAB PO SCH (22:45)
--- NOTE | 2017-04-29 00:04 | GOP ---
[f rep st] OPERATIVE REPORT DATE OF OPERATION: 04/28/2017 SURGEON: Martínez Arshad MD WEASAND TRIMMER: Zach Alves PA-C. PREOPERATIVE DIAGNOSIS: Severe 3-vessel coronary artery disease. POSTOPERATIVE DIAGNOSIS: Severe 3-vessel coronary artery disease. PROCEDURE PERFORMED: 3-vessel coronary artery bypass with left internal mammary artery bypass, left anterior descending artery saphenous vein graft to the obtuse marginal branch of the circumflex arter y and skeletonized right internal mammary artery bypass to the right coronary artery. FINDINGS: JUAN at the beginning of the case shows mild mitral insufficiency. There was incredibly se juhi left ventricular hypertrophy but no left ventricular outflow tract obstruction, no systolic ante rior motion of the mitral valve. LV function, systolic, was normal. Both mammary arteries were some what small, but did have good flow. The vein was of excellent quality. The obtuse marginal was 2.5 mm, very fibrotic. Plaque was split with a very long anastomosis. The LAD was 2.25 mm and good qual ity. The right coronary artery was 2.25 - 2.50 mm and of good quality. DESCRIPTION OF PROCEDURE: Consent was signed. Patient was taken to the operating room where central line and arterial lines were inserted. General endotracheal anesthesia was administered. JUAN was p erformed. The patient was prepped and draped. The saphenous vein was harvested from the left thigh using the endovascular harvesting system. Median sternotomy was performed. Left internal mammary ar pamela was mobilized as a pedicle graft. The right internal mammary artery was skeletonized graft. Th e patient was heparinized, cannulated, and placed on bypass. He was kept normothermic. The aorta wa s cross clamped. Cold potassium containing cardioplegia was infused in the aortic root and reinfused after each distal anastomosis. Saphenous vein graft was placed in the obtuse marginal. The plaque in the mid vessel was split. The skeletonized right internal mammary artery to the mid right coronar y artery and the left internal mammary artery to the fairly proximal left anterior descending artery. Both pericardia were incised. Cross clamp was removed. The proximal end of the vein graft was farzad stomosed to a punch hole and the ascending aorta grafts were deaired and all anastomoses were checked and found to be hemostatic. Radiopaque ring was placed as were ventricular pacemaker wires. The he art was in a normal sinus rhythm, and Tigre 16, 39327 gm of calcium chloride was administered. Ve ntilation was started and the patient was then easily weaned off cardiopulmonary bypass. Protamine s ulfate was administered. The patient has a brief sinking spell with this, but this recovered nicely. He also had moderate mitral insufficiency initially coming off this that resolved. Hemostasis was obtained. The patient was decannulated. Mediastinal fat was closed. Right angle chest tubes were p laced in both pleural spaces, straight tube in the mediastinum. The sternum was closed with #5 stain less steel wires. The remainder of the chest was closed in the usual fashion. Dressings were applie d. COMPLICATIONS: None. POSTOPERATIVE CONDITION: Stable. HISTORY: 57-year-old male presented with acute coronary syndrome, and catheterization showed severe 3-vessel coronary artery disease with probable thrombus in the right coronary artery. The patient joshi s a history of cardiomyopathy. Had an echocardiogram and his ventricle was remarkably hypertrophied, but there was no left ventricular outflow tract obstruction. /[id number]/MODL
[2017-04-29] MEDS: ceFAZolin 2 GM/SWFI 20 ML SYR IVP SCH ×2 (00:57→08:31)
[2017-04-29] MEDS: INSULIN REGULAR HUMAN 100 UNIT in NS 100 ML IV SCH (02:14)
[2017-04-29] MEDS: fentaNYL 100 MCG/2 ML INJ IVP PRN ×3 (02:26→07:21)
[2017-04-29] MEDS: HYDROCODONE/APAP 5/325 TAB PO PRN ×3 (03:05→18:10)
[2017-04-29 04:12] LABS: PLATELET COUNT 162 10^3/uL (150-400)
--- NOTE | 2017-04-29 07:26 | SOAPPROG ---
SOAP Progress Note Assessment/Plan: POD #1: CABGx3 (CASANOVA-LAD, skeletonized JERMAINE-RCA, SVG-OM) Severe 3VD/unstable angina - s/p CABGx3. Transition Cardene gtt to oral CCB. Continue ASA/statin. Beta-arash if appropriate. Will likely remove AL and FC. Chest tubes to remain until draining less. Possible transfer to PCU later today. Severe LVH - care with pre-load. Will start beta-arash if CCB well-tolerated. Acute blood loss anemia - stable without the need for blood product transfusions. Gout - continue allopurinol. Indomethacin stopped d/t NSAID contraindication in the setting of bypass surgery. Metabolic syndrome - Lifestyle changes stressed to patient. Consistent carb diet ordered (Hgb A1c). Hospitalist team following. Subjective: Has back pain that improved after getting out of bed. Denies SOB or chest pain. Objective: Vital Signs Temp Pulse Resp BP Pulse Ox 37.2 C 90 13 111/52 L 93 04/29/17 02:00 04/29/17 06:00 04/29/17 06:00 04/29/17 06:00 04/29/17 06:00 Laboratory Results 04/29/17 04:00 04/29/17 04:00 04/28/17 04/29/17 04/30/17 05:59 05:59 05:59 Intake Total 2591 Output Total 3465 Balance -874 Physical Exam - Physical Exam General Appearance: WD/WN, alert, no apparent distress EENT: No scleral icterus (R), No scleral icterus (L) Neck: normal inspection Respiratory: No respiratory distress Cardiac/Chest: regular rate, rhythm Abdomen: non-tender, soft, No distended Skin: normal color, warm/dry Extremities: No pedal edema Neuro/Psych: no motor/sensory deficits, alert, normal mood/affect, oriented x 3 ICD10 Worksheet Patient Problems: Problems Problem Status Onset Chest pain Acute Unstable angina Acute
[2017-04-29] MEDS ORDERED: KETOROLAC 30 MG/1 ML SDV IVP ONE (08:30)
[2017-04-29] MEDS ORDERED: ASPIRIN 81 MG CHEWABLE TAB TUBE PRN (09:00)
[2017-04-29] MEDS ORDERED: amLODIPine BESYLATE 5 MG TAB PO SCH (09:00)
[2017-04-29] MEDS ORDERED: D50W 25 GM/50 ML SYR IVP PRN (09:04)
--- NOTE | 2017-04-29 09:07 | HOSPPROG ---
Hospitalist Progress Note Assessment/Plan: Unstable angina in setting of critical multi-vessel CAD S/P CABG POD #1, post-op management per CV surgery -cont asa, statin Hypertrophic CM - cards following Hypertension - fair control. likely warrants BB at some point post-operatively , will defer to CV surg Hyperlipidemia - LDL 186, cont statin. Pre-diabetes - a1c 6.2. -change from insulin drip to SSI -could start metformin 500 mg BID at d/c. Defer for now given recent dye load and post-op status Gout - cont allopurinol and indocin H/O etoh - no e/o withdrawal Full code Dispo - cont inpt Subjective: Pt is up in chair, a bit uncomfortable with incisional pain. No fevers or SOB. Objective: Vital Signs Temp Pulse Resp BP Pulse Ox 37.4 C 88 24 H 109/54 L 91 L 04/29/17 09:00 04/29/17 09:00 04/29/17 09:00 04/29/17 09:00 04/29/17 09:00 Laboratory Results 04/29/17 04:00 04/29/17 04:00 04/28/17 04/29/17 04/30/17 05:59 05:59 05:59 Intake Total 2591 71.8 Output Total 3465 320 Balance -874 -248.2 - Physical Exam Constitutional: no apparent distress Eyes: PERRL Ears, Nose, Mouth, Throat: moist mucous membranes Cardiovascular: regular rate and rhythym Respiratory: no respiratory distress, reduced air movement Gastrointestinal: normoactive bowel sounds, soft, non-tender abdomen Skin: warm Musculoskeletal: full muscle strength Neurologic: AAOx3 Psychiatric: interacting appropriately ICD10 Worksheet Patient Problems: Problems Problem Status Onset Chest pain Acute Unstable angina Acute
[2017-04-29] MEDS: MUPIROCIN 2% 22 GM OINT NS SCH ×2 (09:39→20:08)
[2017-04-29] MEDS: DILTIAZEM 30 MG TAB PO SCH ×3 (09:59→18:10)
[2017-04-29] MEDS: ASPIRIN 81 MG CHEWABLE TAB PO SCH (10:26)
[2017-04-29] MEDS: ALLOPURINOL 300 MG TAB PO SCH (10:26)
[2017-04-29] MEDS: SENNOSIDES/DOCUSATE SODIUM TAB PO SCH ×2 (10:27→20:08)
[2017-04-29] MEDS: INSULIN LISPRO 100 UNIT/ML SC SCH ×3 (12:10→21:20)
[2017-04-29] MEDS: KETOROLAC 15 MG/1 ML SDV IVP SCH ×3 (14:22→23:59)
[2017-04-29] MEDS: PANTOPRAZOLE SODIUM 40 MG TAB PO SCH (14:23)
[2017-04-29] MEDS: traMADol 50 MG TAB PO PRN (14:27)
--- NOTE | 2017-04-29 15:51 | SOAPPROG ---
SOAP Progress Note Assessment/Plan: Assessment: Now on tele unit POD1 cabg in context of Hypertrophic CM severe pain control subjectively good but has campos which might be pain equivalent afeb vss cor nsr 80's wds ok well perfused no wheeze normal wob at rest but campos with second ambulation labs as expected imp cad/cabg hcm/ ccb and bb acute blood loss anemia/ following Plan: 04/29/17 15:49 Objective: Vital Signs Temp Pulse Resp BP Pulse Ox 36.8 C 87 18 111/68 91 L 04/29/17 12:00 04/29/17 12:00 04/29/17 12:00 04/29/17 12:00 04/29/17 12:00 Laboratory Results 04/29/17 04:00 04/29/17 09:10 04/28/17 04/29/17 04/30/17 05:59 05:59 05:59 Intake Total 2591 446.8 Output Total 3465 427 Balance -874 19.8 ICD10 Worksheet Patient Problems: Problems Problem Status Onset Chest pain Acute Unstable angina Acute
[2017-04-29] MEDS: ceFAZolin 2 GM/SWFI 2 GM/20 ML SYR IVP SCH ×2 (18:11→23:58)
[2017-04-29] MEDS ORDERED: METOPROLOL TARTRATE 25 MG TAB PO SCH (21:00)
[2017-04-30] MEDS: DILTIAZEM 30 MG TAB PO SCH ×2 (00:03→06:30)
[2017-04-30] MEDS: traMADol 50 MG TAB PO PRN ×2 (00:07→10:13)
[2017-04-30] MEDS: KETOROLAC 15 MG/1 ML SDV IVP SCH (05:36)
--- NOTE | 2017-04-30 07:52 | SOAPPROG ---
SOAP Progress Note Assessment/Plan: Assessment: POD#2 CABGx3 (CASANOVA-LAD, skeletonized JERMAINE-RCA, SVG-OM). EVH left thigh. Sx CAD w preserved LV systolic fx - s/p CABGx3 w 2 arterial grafts. Stable early postop course. Tubes and wires out. Secondary prevention with ASA, BB as allowed by BP, and statin when eating well. (Skeletonized) JERMAINE antispasm prophylaxis with CCB x 3 mo. Severe LVH - Without LVOT obstruction or UDAY. Care with pre-load. Rate control with CCB +/- BB. Acute blood loss anemia - Stable without the need for blood product transfusions. Gout - Controlled. Allopurinol resumed. Modified NSAID for adjunctive analgesia (BIMAs and CT discomfort). Metabolic syndrome - Hgb A1c 6.2%. Counseling re therapeutic lifestyle changes provided. Hospitalist team following. Plan: Switch Cardizem IR to once daily Norvasc. Decrease metoprolol to 12.5 mg BID with conservative hold parameters. Inc activity as tolerated. Advance diet as tolerated. Dispo - Anticipate home next 2-3 days. 04/30/17 07:47 Subjective: Doing ok. Slept in recliner as not comfortable on his back. Pain well controlled. Tolerating light activity. Yet to eat much. No nausea or bloating. Objective: Vital Signs Temp Pulse Resp BP Pulse Ox 36.8 C 81 20 106/60 92 04/30/17 04:00 04/30/17 06:30 04/30/17 04:00 04/30/17 06:30 04/30/17 04:00 Laboratory Results 04/30/17 05:50 04/30/17 05:50 04/29/17 04/30/17 05/01/17 05:59 05:59 05:59 Intake Total 2591 1966.8 Output Total 3465 877 Balance -874 1089.8 Stable HR and rhythm. Marginal BP yest PM and doses BB and CCB held. UOP adequate. No sig rise in Cr. CXR-> hypoventilation with left basilar atelectasis. Remains on 4 liter suppl O2 req. Physical Exam - Physical Exam General Appearance: alert, no apparent distress Respiratory: normal breath sounds Cardiac/Chest: regular rate, rhythm, other (Sternotomy, LLE ventomy, and CT dressing CDI) Abdomen: normal bowel sounds, non-tender, soft Skin: warm/dry Extremities: swelling (1+ generalized) ICD10 Worksheet Patient Problems: Problems Problem Status Onset Chest pain Acute Unstable angina Acute
[2017-04-30] MEDS: INSULIN LISPRO 100 UNIT/ML SC SCH ×4 (08:09→21:06)
[2017-04-30] MEDS: MUPIROCIN 2% 22 GM OINT NS SCH (09:14)
[2017-04-30] MEDS: ASPIRIN 81 MG CHEWABLE TAB PO SCH (09:14)
[2017-04-30] MEDS: PANTOPRAZOLE SODIUM 40 MG TAB PO SCH (09:14)
[2017-04-30] MEDS: ALLOPURINOL 300 MG TAB PO SCH (09:14)
[2017-04-30] MEDS: METOPROLOL TARTRATE 25 MG TAB PO SCH ×2 (09:14→21:07)
[2017-04-30] MEDS: SENNOSIDES/DOCUSATE SODIUM TAB PO SCH ×2 (09:15→21:06)
--- NOTE | 2017-04-30 09:43 | HOSPPROG ---
Hospitalist Progress Note Assessment/Plan: Unstable angina in setting of critical multi-vessel CAD S/P CABG POD #2, post-op management per CV surgery -cont asa, statin Hypertrophic CM - cards following Hypertension - fair control. BB started per CV surgy. Hyperlipidemia - LDL 186, cont statin. Pre-diabetes - a1c 6.2. -cont ssi -consider addition of Metformin 500 BID at dc or as outpt Gout - cont allopurinol and indocin H/O etoh - no e/o withdrawal Full code Dispo - cont inpt Subjective: Pt doing better today. Pain control improved. Ambulating in halls. No CP or SOB. Objective: Vital Signs Temp Pulse Resp BP Pulse Ox 36.8 C 82 18 102/50 L 92 04/30/17 07:58 04/30/17 07:58 04/30/17 07:58 04/30/17 07:58 04/30/17 07:58 Laboratory Results 04/30/17 05:50 04/30/17 05:50 04/29/17 04/30/17 05/01/17 05:59 05:59 05:59 Intake Total 2591 1966.8 Output Total 3465 877 Balance -874 1089.8 - Physical Exam Constitutional: no apparent distress Eyes: PERRL Ears, Nose, Mouth, Throat: moist mucous membranes Cardiovascular: regular rate and rhythym Respiratory: no respiratory distress, clear to auscultation Skin: warm Musculoskeletal: full muscle strength Neurologic: AAOx3 Psychiatric: interacting appropriately ICD10 Worksheet Patient Problems: Problems Problem Status Onset Chest pain Acute Unstable angina Acute
[2017-04-30] MEDS: INDOMETHACIN 25 MG CAP PO SCH ×2 (13:09→18:14)
--- NOTE | 2017-04-30 16:05 | CPEKG ---
Heart Rate: 82 RR Interval: 732 P-R Interval: 184 QRSD Interval: 100 QT Interval: 376 QTC Interval: 439 P [place]: 47 QRS [place]: 69 T Wave [place]: -60 EKG Severity - ABNORMAL ECG - EKG Impression: SINUS RHYTHM EKG Impression: ABERRANT COMPLEX, POSSIBLY SUPRAVENTRICULAR EKG Impression: LEFT ATRIAL ABNORMALITY EKG Impression: LOW VOLTAGE THROUGHOUT EKG Impression: SUBTLE ST CHANGES NOTED. EKG Impression: CONSIDER ANTERIOR INFARCT EKG Impression: COMPARED WITH 04/26/2017, APPARENT COMPLEX NOW PRESENT. SUBTLE ST CHANGES EKG Impression: NOTED. Electronically Signed By: Odilia Akins 30-Apr-2017 17:18:01
--- NOTE | 2017-04-30 16:26 | ASMTCMCOM ---
CM Note CM Note Notes: 04/30/2017 Case Management Note Reviewed chart. PT is recommending Cardiac out patient rehab. No further case management d/c needs identified. Case Management d/c poc: to cardiac rehab once medically stable with follow up as directed. Case Management available if needs change. Date Signed: 04/30/2017 04:26 PM Electronically Signed By:China Shi RN
--- NOTE | 2017-04-30 20:40 | SOAPPROG ---
LYNDA Progress Note Assessment/Plan: Assessment: Now on tele unit POD1 cabg in context of Hypertrophic CM severe pain control subjectively good but has campos which might be pain equivalent afeb vss cor nsr 80's wds ok well perfused no wheeze normal wob at rest but campos with second ambulation labs as expected imp cad/cabg hcm/ ccb and bb acute blood loss anemia/ following Plan: 04/29/17 15:49 04/30/17 20:38 CTS seen with PA this pm Feeling better ambulatated with campos afeb vss, bp soft yesterday, better today cor nsr well perfused no wheeze normal wob labs reviewed imp cad/cabg: bb as tolerated, ccb for BIMA spasm prophylaxis hocm/consider ep eval at some point given some VT/VF risk Objective: Vital Signs Temp Pulse Resp BP Pulse Ox 37.1 C 91 20 118/67 93 04/30/17 20:00 04/30/17 20:00 04/30/17 20:00 04/30/17 20:00 04/30/17 20:00 Laboratory Results 04/30/17 05:50 04/30/17 05:50 04/29/17 04/30/17 05/01/17 05:59 05:59 05:59 Intake Total 2591 1966.8 1050 Output Total 3465 877 700 Balance -874 1089.8 350 ICD10 Worksheet Patient Problems: Problems Problem Status Onset Chest pain Acute Unstable angina Acute
[2017-05-01] MEDS: HYDROCODONE/APAP 5/325 TAB PO PRN ×3 (03:51→16:57)
--- NOTE | 2017-05-01 07:05 | SOAPPROG ---
SOAP Progress Note Assessment/Plan: POD #3: CABGx3 (CASANOVA-LAD, skeletonized JERMAINE-RCA, SVG-OM), EVH left thigh Severe 3VD/unstable angina - s/p CABGx3. Continue ASA/statin/BB. CCB x 3 months for JERMAINE spasm prophylaxis. Severe LVH - care with pre-load. Continue BB. Acute blood loss anemia - stable without the need for blood product transfusions. Gout - continue allopurinol/Indomethacin. Metabolic syndrome - Lifestyle changes stressed to patient. Consistent carb diet ordered (HgbA1c 6.2%). Hospitalist team following. DVT prophylaxis - SCDs alone Disposition - home Wed/Th Subjective: Denies pain/SOB. Objective: Vital Signs Temp Pulse Resp BP Pulse Ox 36.8 C 87 18 122/69 H 95 05/01/17 04:00 05/01/17 04:00 05/01/17 04:00 05/01/17 04:00 05/01/17 04:00 Laboratory Results 05/01/17 04:02 05/01/17 04:00 04/30/17 05/01/17 05/02/17 05:59 05:59 05:59 Intake Total 1966.8 1350 Output Total 877 1078 Balance 1089.8 272 Physical Exam - Physical Exam General Appearance: WD/WN, alert, no apparent distress EENT: No scleral icterus (R), No scleral icterus (L) Neck: normal inspection Respiratory: No respiratory distress Cardiac/Chest: regular rate, rhythm Abdomen: non-tender, soft, No distended Skin: normal color, warm/dry Extremities: pedal edema (trace BL) Neuro/Psych: no motor/sensory deficits, alert, normal mood/affect, oriented x 3 ICD10 Worksheet Patient Problems: Problems Problem Status Onset Chest pain Acute Unstable angina Acute
[2017-05-01] MEDS: INSULIN LISPRO 100 UNIT/ML SC SCH ×2 (08:50→13:12)
[2017-05-01] MEDS: SENNOSIDES/DOCUSATE SODIUM TAB PO SCH ×2 (09:18→20:47)
[2017-05-01] MEDS: METOPROLOL TARTRATE 25 MG TAB PO SCH ×2 (09:19→20:47)
[2017-05-01] MEDS: INDOMETHACIN 25 MG CAP PO SCH ×3 (09:19→18:08)
[2017-05-01] MEDS: ATORVASTATIN CALCIUM 40 MG TAB PO SCH (09:19)
[2017-05-01] MEDS: PANTOPRAZOLE SODIUM 40 MG TAB PO SCH (09:20)
[2017-05-01] MEDS: ASPIRIN 81 MG CHEWABLE TAB PO SCH (09:20)
[2017-05-01] MEDS: ALLOPURINOL 300 MG TAB PO SCH (09:20)
--- NOTE | 2017-05-01 16:01 | HOSPPROG ---
Hospitalist Progress Note Assessment/Plan: nstable angina in setting of critical multi-vessel CAD S/P CABG POD #3, post-op management per CV surgery -cont asa, statin Hypertrophic CM - cards following Hypertension - fair control. BB started per CV surgy. Hyperlipidemia - LDL 186, cont statin. Pre-diabetes - a1c 6.2. -cont ssi -consider addition of Metformin 500 BID at dc or as outpt Gout - cont allopurinol and indocin H/O etoh - no e/o withdrawal Full code Dispo - cont inpt. Medicine will sign off. Please call with further questions if we can be of any assistance. Objective: Vital Signs Temp Pulse Resp BP Pulse Ox 36.7 C 83 20 103/62 93 05/01/17 15:37 05/01/17 15:37 05/01/17 15:37 05/01/17 15:37 05/01/17 15:37 Laboratory Results 05/01/17 04:02 05/01/17 04:00 04/30/17 05/01/17 05/02/17 05:59 05:59 05:59 Intake Total 1966.8 1350 240 Output Total 877 1078 300 Balance 1089.8 272 -60 ICD10 Worksheet Patient Problems: Problems Problem Status Onset Chest pain Acute Unstable angina Acute
[2017-05-02] MEDS: HYDROCODONE/APAP 5/325 TAB PO PRN ×3 (00:33→11:22)
[2017-05-02 07:32] VITALS: BP 101/55; PULSE 79; RESP 20; TEMP 98.1
--- NOTE | 2017-05-02 07:48 | SOAPPROG ---
SOAP Progress Note Assessment/Plan: Assessment: POD#4 CABGx3 (CASANOVA-LAD, skeletonized JERMAINE-RCA, SVG-OM). EVH left thigh. Sx CAD w preserved LV systolic fx - s/p CABGx3 w 2 arterial grafts. Stable early postop course. Tubes and wires out. Secondary prevention with ASA, BB, and statin. (Skeletonized) JERMAINE antispasm prophylaxis with CCB x 3 mo. Severe LVH - Without LVOT obstruction or UDAY. Adequate autodiuresis. Rate control with BB. Acute blood loss anemia - Stable without the need for blood product transfusions. Gout - Controlled. Allopurinol and NSAID resumed. Metabolic syndrome - Hgb A1c 6.2%. Counseling re therapeutic lifestyle changes provided. Hospitalist team following. Consideration of OHA deferred to outpt f/ u. Plan: Cont current meds. Ok for discharge. Instructions re diet, meds, activity, f/u and wound care reviewed. 05/02/17 07:40 Subjective: Doing well. Improving strength and stamina. Ready to go home. Objective: Vital Signs Temp Pulse Resp BP Pulse Ox 36.7 C 79 20 101/55 L 92 05/02/17 07:30 05/02/17 07:30 05/02/17 07:30 05/02/17 07:30 05/02/17 07:30 Laboratory Results 05/02/17 06:35 05/01/17 04:00 05/01/17 05/02/17 05/03/17 05:59 05:59 05:59 Intake Total 1350 940 Output Total 1078 2425 Balance 272 -1485 Holding SR. Tolerating low dose BB and CCB. Almost off suppl O2. CXR: improved insp effort, no pulm vasc congestion, small left pleural effusion Excellent autodiuresis, approaching admission wt. H/H stable. Physical Exam - Physical Exam General Appearance: alert, no apparent distress Respiratory: decreased breath sounds (left base) Cardiac/Chest: regular rate, rhythm, other (Sternum grossly stable. Stenotomy, LLE venotomy and CT sites CDI) Abdomen: non-tender, soft Skin: warm/dry Extremities: swelling (trace dependent) ICD10 Worksheet Patient Problems: Problems Problem Status Onset Chest pain Acute Unstable angina Acute
[2017-05-02 08:35] VITALS: O2SAT 87
--- NOTE | 2017-05-02 08:48 | PDHOMEO2F ---
Home Oxygen Face to Face Home Orders: I certify that a physician or a nurse practitioner or physician's offset assistant press operator has had a [id number] encounter with this patient on the date of this order due to the diagnosis listed, which relates to the primary reason the patient requires home oxygen. Alternative treatments have been tried, or considered, and deemed ineffective. It is anticipated that supplemental oxygen will result in improvement with treatment. Home oxygen qualifying diagnosis: CAD Home oxygen secondary diagnosis: HOCM SpO2 on room air (%): 87 Frequency of home oxygen needed: continuous Home oxygen liters per minute: 1 Home oxygen delivery device: nasal cannula Concentrator: Yes E-tanks for mobility and back up: Yes If ordering portable O2, is the patient mobile in the home?: Yes I certify that, based on these findings, the home oxygen is medically necessary for this patient for the following length of time. Length of time home oxygen needed: 1 month
[2017-05-02] MEDS: INDOMETHACIN 25 MG CAP PO SCH ×2 (09:46→12:54)
[2017-05-02] MEDS: ATORVASTATIN CALCIUM 40 MG TAB PO SCH (09:47)
[2017-05-02] MEDS: ASPIRIN 81 MG CHEWABLE TAB PO SCH (09:47)
[2017-05-02] MEDS: ALLOPURINOL 300 MG TAB PO SCH (09:47)
[2017-05-02] MEDS: METOPROLOL TARTRATE 25 MG TAB PO SCH (09:48)
[2017-05-02] MEDS: PANTOPRAZOLE SODIUM 40 MG TAB PO SCH (09:50)
[2017-05-02] MEDS: SENNOSIDES/DOCUSATE SODIUM TAB PO SCH (09:50)
--- NOTE | 2017-05-02 17:52 | PDDCSUM ---
Discharge Summary Discharge Summary: DATE OF ADMISSION: 04/27/17 DATE OF DISCHARGE: 05/02/17 DISPOSITION: Home, self-care PRINCIPAL ADMISSION DIAGNOSIS: Unstable angina PRINCIPAL DISCHARGE DIAGNOSES: 1. Hypertrophic cardiomyopathy with diastolic dysfunction and uncontrolled hypertension 2. Severe multivessel coronary artery disease 3. Mild carotid atherosclerosis 4. Probable metabolic syndrome 5. Status post coronary artery bypass grafting x 3 6. Acute expected blood loss anemia HISTORY OF PRESENT ILLNESS: 57 yo male with a "thick heart" evaluated in the ER for a 2 mo hx of progressive exertional chest pressure and admitted for further cardiac evaluation after found to have a mildly elevated troponin (.04) with HTN, hyperlipidemia (TC 256, LDL 186, HDL 36, TG 173), prediabetes (A1c 6.2%) and EKG evidence of LVH. Severe concentric LVH with mild LVDD confirmed by echo. No associated MR, LVOT gradient, or LVSD. Referred for surgical revascularization after found to have severe multivessel CAD with left main involvement. No angina , dysrhythmias, or hemodynamic instability awaiting CABG. OTHER PAST MEDICAL HISTORY: gout MEDICATIONS ON ADMISSION: Allopurinol 300 mg daily, Indomethacin 50 mg daily ALLERGIES/SENSITIVITIES: NKDA CONSULTANTS: Cardiology (Yazmin), Cardiovascular surgery (Lamonte) PROCEDURES/IMAGIN/14 (Shoaib): Transthoracic echocardiogram 04/26 (Yazmin): Left heart catheterization with selective coronary angiography. Access via right common femoral artery. 04/26 Carotid ultrasound: mild plaquing bilaterally 04/28 (Pavithra): Coronary artery bypass grafting x 3 (CASANOVA-LAD, skeletonized JERMAINE- RCA, SVG-OM2). Takedown bilateral internal mammary arteries. Endoscopic vein harvest left thigh. ABBREVIATED HOSPITAL COURSE BY ACTIVE PROBLEM LIST: 1. Sx CAD w preserved LV systolic fx - Uneventful recovery s/p CABGx3 with 2 arterial grafts. Secondary prevention with ASA, BB, and statin. (Skeletonized) JERMAINE antispasm prophylaxis with CCB x 3 mo. 2. Severe LVH/HOCM - Without LVOT obstruction or UDAY. Modest postop volume overload adequately auto-diuresed. Stable rhythm and rate control with BB. EP consult re primary ICD to be arranged as outpt. 3. Acute blood loss anemia - Stable. No blood products transfused. 4. Metabolic syndrome - Suspected (obesity, prediabetes, hyperlipidemia). Counseling re therapeutic lifestyle changes provided. Started on statin therapy and SSI. Minimal correctional insulin required and use of OHA deferred to outpt f/u. 5. Gout - Controlled. Allopurinol and NSAID resumed. DISCHARGE CLINICAL INFORMATION: Sternum grossly stable. Sternotomy and LLE venotomy CDI, sutured, +Dermabond. HR 70s. SBP 90-100s. SpO2 87% RA, correcting to 92% on 1 Lpm O2. Wt 1.5 kg above admission at 103.6 kilos. Hgb 8.7, HCT 26, Plt 159, Na 137, K 4.2, Cr 1.0 DISCHARGE MEDICATIONS: As on admission with the following adjustments: Ok to increase indomethacin to 50 mg BID prn adjunctive pain control NEW prescriptions: 1. ASA 81 mg daily. 2. Metoprolol 12.5 mg BID. 3. Norvasc 2.5 mg HS x 3 months. 4. Lipitor 40 mg daily. 5. [place] 5/325 one to two tabs q 4hr prn incisional discomfort. 6. Oxygen @ 1 Lpm continuously, or as directed by SpO2. FOLLOW UP APPOINTMENTS: 1. CV surgery: with Dr Aburto at [facility] on 05/09 at 9:30 am. 2. Cardiology: with Dr Arce at [facility] within 4-6 weeks. Appointment to be established during surgical visit. 3. PCP: with Dr Goodwin within 3 months for follow-up prediabetes, hyperlipidemia, and HTN. FOLLOW UP TESTING: CXR prior to surgical appointment.
--- NOTE | 2017-05-03 15:09 | ASDISCHSUM ---
Discharge Information Plan Status:Home with No Needs Medically Cleared to Leave:05/01/2017 Discharge Date:05/02/2017 03:09 PM CM D/C Disposition: ADT D/C Disposition:Home, Routine, Self-Care Projected Discharge Date:05/02/2017 12:00 AM Transportation at D/C: Discharge Delay Reason: Follow-Up Date:05/02/2017 12:00 AM Discharge Slot: Final Diagnosis: Placement Information Patient Contact Information Contact Name:JACKIE Relationship: Address:[address] Work Phone: City:[place] Alternate Phone: [facility]/Zip Code:[place] [address] Email: Financial Information Financial Class:HMO and PPO Plans Primary Plan Desc:[employer] JAILENE CHAHAL Primary Plan Number:[id number] Secondary Plan Desc: Secondary Plan Number: Assessment Information [facility] CM Progress Note CM Note CM Note Notes: Reviewed chart,pt here with chest pain, will have angiogram today. anticipate dc home independantly when medically stable. CM avail for any changes/needs. Date Signed: 04/26/2017 02:11 PM Electronically Signed By:Berenice Cervantes RN [facility] CM Progress Note CM Note CM Note Notes: Pt's angiogram today showed sever CAD per progress note; Dr Aburto has consulted and pt will likely go for OHS in next couple days. Pt's and son here today and were able to discuss w/MD. CM w/f. Date Signed: 04/26/2017 05:10 PM Electronically Signed By:Berenice Cervantes RN [facility] CM Progress Note CM Note CM Note Notes: Patient underwent surgery today. Needs to be determined. CM to follow. Date Signed: 04/28/2017 01:42 PM Electronically Signed By:Becka Tafoya RN [facility] CM Progress Note CM Note CM Note Notes: 04/30/2017 Case Management Note Reviewed chart. PT is recommending Cardiac out patient rehab. No further case management d/c needs identified. Case Management d/c poc: to cardiac rehab once medically stable with follow up as directed. Case Management available if needs change. Date Signed: 04/30/2017 04:26 PM Electronically Signed By:China Shi RN Intervention Information
--- NOTE | 2017-05-08 15:19 | PQFORM ---
PHYSICIAN QUERY FORM Needs Your Response This query form is being sent to you to assure this patient record is coded properly. 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 [place], Consult note by Dr Aburto documents Non Q Wave NH and the EKG states 'consider anterior infarct' however other documentation states Unstable Angina/CAD. Please Clarify if this patient had a Myocardial Infarction? ___ Yes ___ No _x_ Unable to Determine: troponin borderline and downward trending; no clear ischemia by EKG; HOCM with severe concentric LVH possible confounder; bottom line - deference to cardiology and they called it unstable angina ___ Other (Please specify ) Thank You Rajwinder PARKER [employer] INSTRUCTIONS FOR RESPONSE: Answer question by clicking on the "Edit Document" button. Move cursor to area below the stars. When complete, hit "Save." Click on the "Sign" button, then click "Sign" again. Type in your PIN and hit "Enter." MTDD
== END 2017-05-02 15:09 | disposition home or self-care (01) | DRG 234 ==
LOC: F2W 21:26 → F2N 04-26 14:30 → F2W 04-26 14:50 → OBSVTOIN 04-27 11:55 → F2N 04-28 09:55 → F2W 04-29 11:50
PROVIDERS: ADMIT Thoracic Surgery (Cardiothoracic Vascular Surgery); ATTEND Thoracic Surgery (Cardiothoracic Vascular Surgery)
PROC: 4A023N7 Measurement of Cardiac Sampling and Pressure, Left Heart, Percutaneous Approach (ICD-10-PCS; 2017-04-26)
PROC: B2111ZZ Fluoroscopy of Multiple Coronary Arteries using Low Osmolar Contrast (ICD-10-PCS; 2017-04-26)
PROC: B246ZZ4 Ultrasonography of Right and Left Heart, Transesophageal (ICD-10-PCS; 2017-04-26)
PROC: 02100Z9 Bypass Coronary Artery, One Artery from Left Internal Mammary, Open Approach (ICD-10-PCS; principal; 2017-04-28 08:00)
PROC: 5A1221Z Performance of Cardiac Output, Continuous (ICD-10-PCS; principal; 2017-04-28 08:00)
PROC: 06BQ4ZZ Excision of Left Saphenous Vein, Percutaneous Endoscopic Approach (ICD-10-PCS; principal; 2017-04-28 08:00)
PROC: 02100Z8 Bypass Coronary Artery, One Artery from Right Internal Mammary, Open Approach (ICD-10-PCS; principal; 2017-04-28 08:00)
PROC: 021009W Bypass Coronary Artery, One Artery from Aorta with Autologous Venous Tissue, Open Approach (ICD-10-PCS; principal; 2017-04-28 08:00)
DX: I25.110 Atherosclerotic heart disease of native coronary artery with unstable angina pectoris (principal); I42.2 Other hypertrophic cardiomyopathy; D62 Acute posthemorrhagic anemia; E88.81 Metabolic syndrome and other insulin resistance; R73.03 Prediabetes; E78.5 Hyperlipidemia, unspecified; I10 Essential (primary) hypertension; M10.9 Gout, unspecified; I65.23 Occlusion and stenosis of bilateral carotid arteries
CPT/HCPCS: 82947-QW; 97116-GP; 97161-GP; 97165-GO; 97530-GO; 97530-GP; 97535-GO; G0378; J0153; J0282; J0690; J1170; J1265; J1644; J1815; J1885; J2001; J2150; J2250; J2260; J2370; J2405; J2440; J2704; J2720; J2765; J2930; J3010; J3370; J7060; P9041; Q9967

== ENCOUNTER → 2017-05-09 | Outpatient (CLI) | payer OTHER | LOC: FIMAGING 08:54 | PROVIDERS: ATTEND Thoracic Surgery (Cardiothoracic Vascular Surgery) | DX: Z09 Encounter for follow-up examination after completed treatment for conditions other than malignant neoplasm (principal); Z95.1 Presence of aortocoronary bypass graft; R91.8 Other nonspecific abnormal finding of lung field ==

== ENCOUNTER → 2017-05-23 | Outpatient (CLI) | payer OTHER | LOC: FIMAGING 12:48 | PROVIDERS: ATTEND Thoracic Surgery (Cardiothoracic Vascular Surgery) | DX: Z48.812 Encounter for surgical aftercare following surgery on the circulatory system (principal); Z95.5 Presence of coronary angioplasty implant and graft ==

== ENCOUNTER 2017-06-11 13:30 | Inpatient (IN) | payer OTHER ==
--- NOTE | 2017-06-11 13:51 | CPEKG ---
Heart Rate: 72 RR Interval: 833 P-R Interval: 204 QRSD Interval: 116 QT Interval: 408 QTC Interval: 447 P [place]: 20 QRS [place]: 72 T Wave [place]: 104 EKG Severity - ABNORMAL ECG - EKG Impression: SINUS RHYTHM EKG Impression: LEFT ATRIAL ABNORMALITY EKG Impression: TWI lateral leads EKG Impression: NONSPECIFIC INTRAVENTRICULAR CONDUCTION DELAY EKG Impression: LOW VOLTAGE IN FRONTAL LEADS EKG Impression: BORDERLINE R WAVE PROGRESSION, ANTERIOR LEADS Electronically Signed By: Mariaelena Escalona 11-Jun-2017 16:04:23
--- NOTE | 2017-06-11 14:03 | EDPHY ---
HPI/HX/ROS/PE/MDM Narrative: CHIEF COMPLAINT: Chest pain HISTORY OF PRESENT ILLNESS: The patient is a 57 y/o male with recent CABG x3 arriving from cardiac rehab complaining of chest pain and malaise over the last week. He was admitted 04/27/17, about 6 weeks ago, for unstable angina and required a triple bypass for severe multivessel CAD. He feels his recovery has been going well until about one week ago when he started to feel like "things are going backwards." Over the last week he's had increasing fatigue, dizziness , dyspnea, and a pleuritic right-sided chest pain. Last night this chest pain began creeping towards his shoulder. It is worse with palpation and breathing. He also has the "typical pain and pressure on the left side I've had for years that always comes up nothing so I don't even talk about it anymore." He skipped a couple days of rehab since these symptoms began, but returned today for a work out. While there "they didn't like the look of me so they sent me over here." He had an episode of epistaxis this morning, but otherwise denies abnormal bleeding. He possibly had a fever a few nights ago but never measured it. No chills, cough, sore throat, leg swelling, palpitations, nausea, vomiting, diarrhea, urinary complaints, headache, lightheadedness. No history of blood clots. REVIEW OF SYSTEMS: Aside from elements discussed in the HPI, a comprehensive 10-point review of systems was reviewed and is negative. PAST MEDICAL HISTORY: 1. Hypertension 2. Severe CAD 3. Hypercholesterolemia 4. Gout 5. CABG x3 04/28/17 - Dr. Arshad 6. Carotid arthrosclerosis 7. Hypertrophic cardiomyopathy with diastolic dysfunction Prior medical records reviewed including several notes from admission on . SOCIAL HISTORY: at bedside. Nonsmoker. 2 beers per day. P[employer] Pipe: Dr. Arce. CV: Dr. Aburto. VITAL SIGNS: Reviewed by me GENERAL: Well-developed, well-nourished, resting comfortably in no respiratory distress. HEENT: Atraumatic. Eyes: No icterus, no injection. Mouth: moist mucous membranes. No erythema or lesions. Neck: supple with no adenopathy. LUNGS: Clear to auscultation bilaterally, no wheezes, rhonchi or rales. CARDIAC: Regular rate and rhythm, no rubs, murmurs or gallops. CHEST: Pinpoint tenderness right anterior upper chest wall. Healing midline sternal scar. ABDOMEN: Soft, nontender, nondistended, bowel sounds normal. BACK: No CVA tenderness. EXTREMITIES: No trauma. No edema. Range of motion is normal throughout. NEURO: Alert and oriented, grossly nonfocal. SKIN: Warm and dry, no rash. PSYCHIATRIC: Normal mentation, no agitation. Portions of this note were transcribed by a medical surgical tech. I personally performed a history, physical exam, medical decision making, and confirmed accuracy of information the transcribed note. ED Course: This is a 57 y/o male 6 weeks post CABG x3 who presents with a 1-week history of malaise and right-sided chest pain. He has focal right anterior chest tenderness that is reproducible on exam. Plan for IV, labs, EKG, chest x-ray. The 12 lead EKG was interpreted by myself. T-wave inversions in the lateral leads concerning for ischemia. See hard copy and/or "tracemaster" electronic copy for interpretation. Chest x-ray: no infiltrate, no pleural effusions. Troponin elevated at 0.038. Patient's troponins during hospitalization previously had peaked at 0.046 with a level of 0.041 at discharge on 04/26. Explained to the patient I am concerned regarding his troponin level currently. It is indeterminate but certainly elevated. Dr. Aburto evaluated the patient in the Emergency Department. Right-sided chest discomfort is felt to be related to a cracked cartilage. The patient's course was discussed with Dr. Petty. Patient will be admitted to the hospital for further evaluation of his dizziness, fatigue, elevated troponin, EKG findings. His course was also discussed with Dr. Arce from Cardiology. MDM: After history and physical examination, the differential for chest pain was considered, including but not limited to, myocardial ischemia, acute coronary syndrome, pulmonary embolus, chest wall pain, pleural inflammation, Riley syndrome, and pulmonary infectious causes. - Data Points Imaging Results: Imaging Impressions Chest X-Ray 06/11/17 14:08 Impression: 1. Postcardiac surgery. 2. Pleuroparenchymal scarring in the lingula. 3. No focal pneumonia, pleural effusion or pneumothorax. 4. No pulmonary edema. Imaging: I viewed and interpreted images myself Laboratory Results: Laboratory Results 06/11/17 13:53 06/11/17 13:53 06/11/17 06/11/17 13:53 13:53 WBC 8.95 10^3/uL 10^3/uL (3.80-9.50) RBC 3.73 10^6/uL L 10^6/uL (4.40-6.38) Hgb 11.1 g/dL L g/dL (13.7-17.5) Hct 34.0 % L % (40.0-51.0) MCV 91.2 fL fL (81.5-99.8) MCH 29.8 pg pg (27.9-34.1) MCHC 32.6 g/dL g/dL (32.4-36.7) RDW 14.6 % % (11.5-15.2) Plt Count 214 10^3/uL 10^3/uL (150-400) MPV 10.9 fL fL (8.7-11.7) Neut % (Auto) 61.5 % % (39.3-74.2) Lymph % (Auto) 28.2 % % (15.0-45.0) [place] % (Auto) 6.1 % % (4.5-13.0) Eos % (Auto) 3.4 % % (0.6-7.6) Baso % (Auto) 0.6 % % (0.3-1.7) Nucleat RBC Rel Count 0.0 % % (0.0-0.2) Absolute Neuts (auto) 5.51 10^3/uL 10^3/uL (1.70-6.50) Absolute Lymphs (auto) 2.52 10^3/uL 10^3/uL (1.00-3.00) Absolute Monos (auto) 0.55 10^3/uL 10^3/uL (0.30-0.80) Absolute Eos (auto) 0.30 10^3/uL 10^3/uL (0.03-0.40) Absolute Basos (auto) 0.05 10^3/uL 10^3/uL (0.02-0.10) Absolute Nucleated RBC 0.00 10^3/uL 10^3/uL (0-0.01) Immature Gran % 0.2 % % (0.0-1.1) Immature Gran # 0.02 10^3/uL 10^3/uL (0.00-0.10) Sodium 142 mEq/L mEq/L (135-145) Potassium 4.7 mEq/L mEq/L (3.5-5.2) Chloride 104 mEq/L mEq/L (97-110) Carbon Dioxide 22 mEq/l mEq/l (22-31) Anion Gap 16 mEq/L mEq/L (8-16) BUN 9 mg/dL mg/dL (7-23) Creatinine 1.0 mg/dL mg/dL (0.7-1.3) Estimated GFR > 60 Glucose 88 mg/dL mg/dL (70-100) Calcium 9.8 mg/dL mg/dL (8.5-10.4) Troponin I 0.038 ng/mL H ng/mL (0.000-0.034) General Time Seen by Provider: 06/11/17 13:49 Initial Vital Signs: Initial Vital Signs Temperature (C) 36.6 C 06/11/17 13:33 Heart Rate 87 06/11/17 13:33 Respiratory Rate 18 06/11/17 13:33 Blood Pressure 98/63 L 06/11/17 13:33 O2 Sat (%) 96 06/11/17 13:33 O2 Delivery Mode Room Air Allergies/Adverse Reactions: No Known Allergies Allergy (Verified 06/11/17 13:33) Home Medications: Medication Instructions Recorded Allopurinol [Zyloprim] 300 mg PO DAILY 04/25/17 Indomethacin [Indocin 25 mg (*)] 50 mg PO DAILY 04/25/17 Acetaminophen [Tylenol 325mg (*)] 650 mg PO Q4HRS PRN tab 05/02/17 Aspirin [Aspirin 81mg (*)] 81 mg PO DAILY tab.chew 05/02/17 Atorvastatin Calcium [Lipitor 40 40 mg PO DAILY #60 tab 05/02/17 mg (*)] Metoprolol Tartrate [Lopressor 25 12.5 mg PO BID #30 tab 05/02/17 mg (*)] amLODIPine BESYLATE [Norvasc 2.5 2.5 mg PO HS #90 tab 05/02/17 mg (*)] Departure - Departure Disposition: [facility] Clinical Impression: Elevated troponin Chest pain Qualifiers: Chest pain type: unspecified Qualified Code(s): R07.9 - Chest pain, unspecified Condition: Fair Report Scribed for: Mariaelena Escalona Report Scribed by: Paloma Ny Date of Report: 06/11/17 Time of Report: 14:10
[2017-06-11 14:15] LABS: PLATELET COUNT 214 10^3/uL (150-400)
--- NOTE | 2017-06-11 14:23 | CPEKG ---
Heart Rate: 70 RR Interval: 857 P-R Interval: 196 QRSD Interval: 100 QT Interval: 424 QTC Interval: 458 P Juliette: 16 QRS Juliette: 47 T Wave Juliette: 113 EKG Severity - ABNORMAL ECG - EKG Impression: SINUS RHYTHM EKG Impression: LEFT ATRIAL ABNORMALITY EKG Impression: BORDERLINE R WAVE PROGRESSION, ANTERIOR LEADS EKG Impression: ABNORMAL T, CONSIDER ISCHEMIA, LATERAL LEADS Electronically Signed By: Mariaelena Escalona 11-Jun-2017 16:03:36
[2017-06-11] MEDS ORDERED: ONDANSETRON 4 MG/2 ML VIAL IVP PRN (15:39)
[2017-06-11] MEDS ORDERED: ONDANSETRON DISINTEGRATING 4 MG TAB PO PRN (15:39)
[2017-06-11] MEDS ORDERED: LACTULOSE 20 GM/30 ML UDCUP PO PRN (17:06)
[2017-06-11] MEDS ORDERED: POLYETHYLENE GLYCOL 3350 17 GM PKT PO PRN (17:06)
[2017-06-11] MEDS ORDERED: BISACODYL 10 MG SUPP PR PRN (17:06)
[2017-06-11] MEDS ORDERED: MAGNESIUM HYDROXIDE 30 ML UDCUP PO PRN (17:06)
--- NOTE | 2017-06-11 17:59 | GHP ---
[f rep st] HISTORY AND PHYSICAL DATE OF ADMISSION: 06/11/2017 CHIEF COMPLAINT: Chest pain. HISTORY OF PRESENT ILLNESS: A 57-year-old male with a history of coronary artery disease status post CABG on 04/28/2017, who reports returning postsurgically home and doing well, was diagnosed with mus culoskeletal chest pain by the outpatient Cardiothoracic Team, which he reports has been stable since he has been at home. He has been doing well with cardiac rehab. Overall, feels quite flat and leth argic. Denies any specific shortness of breath. Denies orthopnea. Reports that he does get more wi nded than he would have prior to his surgery, but that he feels like he has been overall improving. He was initially treated medically for his right-sided costochondritis type pain, but this has acutel y worsened in the past several days. The patient reports his last bowel movement approximately a wee k ago. Reports eating normal meals in between. says he takes very little in the way of fluids during the day. Denies any dysuria, hematuria. Denies lower extremity edema. PAST MEDICAL HISTORY: 1. Coronary artery disease status post CABG, bypass grafting x3. 2. Hypertrophic cardiomyopathy. 3. Chronic diastolic heart failure. 4. Hypertension. 5. Mild carotid atherosclerosis. 6. Acute blood loss anemia. 7. Hyperlipidemia. 8. Prediabetes. Hemoglobin A1c 6.2. 9. Gout. 10. History of alcohol use/abuse in the past. SOCIAL HISTORY: Patient is not drinking alcohol since his surgery. Denies tobacco, illicit drugs or marijuana. FAMILY HISTORY: Positive for heart disease in his mother. REVIEW OF SYSTEMS: A 10-point review of systems is negative, with the exception of that reported in the HPI. PHYSICAL EXAMINATION: VITAL SIGNS: Blood pressure 122/76, heart rate 69, respiratory rate 16, 99% i n room air, 36.6. GENERAL: This is a healthy-appearing middle-aged male sitting up in bed. HEENT: Notable for moist mucous membranes. Eyes: Negative for any icterus. CARDIAC: Patient is regular rate and rhythm. A systolic murmur is appreciated. PULMONARY: Patient has good respiratory effort. Has diminished breath sounds on the right. No rales or rhonchi are appreciated. GASTROINTESTINAL: Positive bowel sounds. Abdomen is soft and nontender. MUSCULOSKELETAL: Negative for any lower ex tremity edema. SKIN: Negative for any rashes. NEUROLOGIC: He is alert and oriented x3. PSYCHIATR IC: Appears depressed on my interview and examination. DATA: EKG, which I personally reviewed and interpreted, shows sinus rhythm with nonspecific ST urvashi ening in V1, T-wave inversions in lead 1 which are different from previous. Chest x-ray, which I per sonally reviewed and interpreted, shows post cardiac surgery findings. No pneumonia or edema. LABORATORY: White count 8.9, hematocrit 34.0. Troponin 0.038. Creatinine 1.0. ASSESSMENT AND PLAN: This is a 57-year-old male presenting with chest pain. 1. Acute right-sided chest pain. Patient was seen by Dr. Aburto, felt very consistent with a previou s diagnosis of musculoskeletal chest pain. Will continue patient's outpatient allopurinol and Indoci n for now. 2. Indeterminate troponin. Do see changes on the EKG that are new from his postsurgical heart shandra ngs. Will admit the patient for serial troponins, telemetry monitoring. Cardiology will be consulti ng for additional recommendations. 3. Coronary artery disease status post CABG. Will continue patient's aspirin, statin. After discus katharina with Cardiology, will switch patient's beta arash to Bystolic. Dr. Aburto did evaluate the pat ient in the emergency department and is aware of his hospitalization. 4. Constipation. Will push the patient on a bowel regimen encouraging hydration. 5. Hypertension. Patient's blood pressures are appropriately controlled. Will stop his evening Nor vasc in exchange for Bystolic during the day, which we can up titrate accordingly. 6. Prediabetes. The patient's blood glucose in the emergency department is 88. Will simply follow. 7. Prophylaxis. With Lovenox. 8. Diet. Cardiac. DISPOSITION: I expect in less than 2 midnights, unless the patient rules in with a troponin elevatio n. Patient should be dischargeable in less than 2 midnights. Discussed the case with Dr. Greene from Cardiology. They will follow along with. /[id number]/MODL
--- NOTE | 2017-06-11 19:10 | GCON ---
[f rep st] CONSULTATION DATE OF CONSULTATION: 06/11/2017 CHIEF COMPLAINT: We have been asked by Dr. Petty to evaluate Mr. Don with a chief complaint of chest pain and fatigue. HISTORY OF PRESENT ILLNESS: This patient is a 57-year-old gentleman with known coronary artery disea se who presents with a chief complaint of chest pain and fatigue. Patient was in his usual state of health until April 25, 2017, when he presented to the emergency department with crescendo angina. He was taken to the cardiac catheterization laboratory, where he was found to have 3-vessel coronary artery disease. Patient was treated with CABG x3. Patient did well postoperatively, and returned t o work as well as started cardiac rehab. Patient states he does well with cardiac rehab, and denies symptoms of angina. He has reported fairly significant fatigue, and just does not feel like he is ab le to do what he was able to do previously. Approximately 1 week prior to this admission, patient re ported that he has been having fairly-significant fatigue. He also reports the onset of right-sided chest pain. The right-sided chest pain is described as sharp, it is respirophasic, and it is worse w ith palpation. Patient denies his typical anginal-type symptoms. Today, when he presented to [facility] rehab, he reported his symptoms, and was referred to the emergency department for further evaluatio n. In the in the emergency department, he had a mildly-elevated troponin of 0.038. He had an EKG pe rformed, demonstrating sinus rhythm, left atrial enlargement, T-wave inversions, and 1 aVL in V2. In leads 3 and aVF, he had NE depression with a quarter of a millimeter of ST-segment elevation. Patie nt denies symptoms of angina. There is no history of orthopnea, or PND. Patient does report he has been feeling fairly fatigued, and also reports the pleuritic right-sided chest pain. In the emergenc y department, he also had an echocardiogram performed demonstrating normal left ventricular size and systolic function. PAST MEDICAL HISTORY: 1. Coronary artery disease. 2. Hypertension. 3. Hyperlipidemia. 4. Gout. 5. Hypertrophic cardiomyopathy with diastolic dysfunction. MEDICATIONS: Please see medicine reconciliation form. ALLERGIES: No known drug allergies. SOCIAL HISTORY: Patient lives with his . 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 He does not smoke. He dri nks approximately 2 beers per day. REVIEW OF SYSTEMS: 10-point review of systems is negative, except as noted in HPI. Patient does rep ort symptoms of mild dizziness over the last week. No symptoms of palpitations. PHYSICAL EXAMINATION: GENERAL: Patient is resting comfortably in bed. He does not appear to be in acute distress. VITALS: Temperature is afebrile, pulse is 72, blood pressure 133/81, respiratory ra te 16, SaO2 is 97% on room air. HEENT: Normocephalic, atraumatic. Extraocular muscles intact. NEC K: No JVD or bruits. LUNGS: Clear to auscultation bilaterally. CARDIOVASCULAR: Regular rate and rhythm. S1, S2. No murmurs, rubs, or gallops appreciated. ABDOMEN: Soft, nontender. Normoactive bowel sounds. No hepatosplenomegaly noted. Aorta was not adequately palpated. EXTREMITIES: No clu bbing, cyanosis, or edema. SKIN: No evidence of rash. NEURO: Patient is awake, alert, and oriente d x3. LAB AND X-RAY FINDINGS: White blood cell count was 8.95, hemoglobin 11.1, hematocrit 34.0 platelet c ount 214. Sodium 142, potassium 4.7, chloride 104, CO2 22, BUN 9, creatinine 1.0, troponin 0.038. Chest x-ray demonstrated no acute cardiopulmonary disease. No pleural effusion. Echocardiogram and EKG are noted in HPI. ASSESSMENT AND PLAN: Mr. Don is a 57-year-old gentleman with return. 1. Chest pain. Patient reports right-sided chest pain that is sharp in character, is worse with res piration as well as with palpation. Suspect this is pleuritis, likely secondary to his recent surger y. 2. Elevated troponin. Patient has a mildly-elevated troponin of 0.038. He remains moderately activ e, and denies symptoms of angina with this activity. His echocardiogram demonstrates normal left óscar tricular size and systolic function. Suspect the mildly-elevated troponin may be secondary to his pr evious bypass surgery, and would be trending down. Would recommend obtaining serial troponins at thi s time. If he has a bump in his troponin, would consider further risk stratification with cardiac ca theterization. If this were to trend down, would favor medical management approach. 3. Fatigue. Patient reports fairly-significant fatigue since his bypass grafting surgery. He was re cently started on metoprolol. Will plan on changing this to Bystolic, to see if his symptoms improve . /[id number]/MODL
[2017-06-11] MEDS: INDOMETHACIN 25 MG CAP PO SCH (20:09)
[2017-06-11] MEDS: ACETAMINOPHEN 325 MG TAB PO PRN (20:09)
[2017-06-11] MEDS: SENNOSIDES/DOCUSATE SODIUM TAB PO SCH (20:09)
[2017-06-12 05:05] LABS: PLATELET COUNT 202 10^3/uL (150-400)
[2017-06-12] MEDS: SENNOSIDES/DOCUSATE SODIUM TAB PO SCH ×2 (07:38→21:22)
[2017-06-12] MEDS: ACETAMINOPHEN 325 MG TAB PO PRN ×2 (07:38→21:26)
[2017-06-12] MEDS: ENOXAPARIN 40 MG/0.4 ML SYR SC SCH (07:38)
[2017-06-12] MEDS: ASPIRIN 81 MG CHEWABLE TAB PO SCH (07:39)
[2017-06-12] MEDS: ATORVASTATIN CALCIUM 40 MG TAB PO SCH (07:39)
[2017-06-12] MEDS: NEBIVOLOL HCL 5 MG TAB PO SCH (07:39)
[2017-06-12] MEDS: INDOMETHACIN 25 MG CAP PO SCH ×2 (07:39→21:22)
[2017-06-12] MEDS: ALLOPURINOL 300 MG TAB PO SCH (07:39)
--- NOTE | 2017-06-12 10:14 | HOSPPROG ---
Hospitalist Progress Note Assessment/Plan: DIAGNOSES: -Chest wall pain and internal sounding chest pain, constant and pleuritic component -description by pt sounds inflammatory in both cases; no PE on CT; no signs of recurrent infection so far -he is already on high dose indocin -after long discussion of options we have recommended trial of colchicine -if the chest wall pain persists I can do a local injection of lidoc./steroid -Elevated troponins: -likely inflammatory (dresslers) or remaining from surgery/infection -s/p CABG: no angina at this time -nonunion of sternum I met and examined the patient with Dr Greene, and we had very long discussion of his sxs, diff dx, further evaluation and management options. The patient is had many good questions about his symptoms, the treatment options, and side effects and we answered these to their satisfaction at this point. 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 Continue his current Indocin which she takes for gout Add colchicine to see if this will improve his inflammatory chest pain Follow for results of that, consider further assessments or other treatment options if that does not help Plan on probably doing a treadmill stress test once we have his chest wall pain stabilized and her certain no other concerning diagnoses present SUBJECTIVE: Ongoing pain in the chest, pleuritic, with 1 component as a very focal area of the anterior ribs just to the right of the upper sternum, and then with another internal component across the mid chest, unchanged from at presentation Nothing that sounds like his original presenting angina before his bypass surgery last month No dyspnea, cough, shortness of breath, fever symptoms, anxiety, leg pain or swelling OBJECTIVE Vitals reviewed: Stable without fever Geodetic Advisor, my review: Sinus Exam: alert oriented skin warm dry color ok resps not labored lungs clear BSs Chest wall with some mild tenderness of ribs 2 3 and 4 at the costal sternal margin area with no visible or palpable abnormality there, this is mild tenderness heart regular abd soft nondistended nontender, bowel sounds present limbs warm, no edema iv site ok Troponins all in the indeterminate range at 0.03 and 0.04 CBC and Chem panel remain normal EKGs with no acute ischemic appearing abnormalities Objective: Vital Signs Temp Pulse Resp BP Pulse Ox 36.7 C 82 16 105/66 94 06/12/17 07:32 06/12/17 07:32 06/12/17 07:32 06/12/17 07:32 06/12/17 07:32 Laboratory Results 06/12/17 04:24 06/12/17 04:24 06/11/17 06/12/17 06/13/17 06:59 06:59 06:59 Intake Total 400 Balance 400 - Time Spent With Patient Time Spent with Patient: greater than 35 minutes Time Spent with Patient: Greater than 35 minutes spent on this patients care, greater than 50% of time spent counseling, educating, and coordinating care regarding the above mentioned plan. ICD10 Worksheet Patient Problems: Problems Problem Status Onset Chest pain Acute Elevated troponin Acute Unstable angina Acute
[2017-06-12] MEDS ORDERED: COLCHICINE 0.6 MG CAP/TAB PO SCH (10:30)
--- NOTE | 2017-06-12 11:18 | CPEKG ---
Heart Rate: 84 RR Interval: 714 P-R Interval: 192 QRSD Interval: 96 QT Interval: 392 QTC Interval: 464 P Roff: 28 QRS Roff: 85 T Wave Roff: 109 EKG Severity - ABNORMAL ECG - EKG Impression: SINUS RHYTHM EKG Impression: LEFT ATRIAL ABNORMALITY EKG Impression: PROBABLE INFERIOR INFARCT, OLD EKG Impression: CONSIDER ANTERIOR INFARCT EKG Impression: BORDERLINE T WAVE ABNORMALITIES EKG Impression: LATERAL LEADS ARE ALSO INVOLVED Electronically Signed By: Antonio Ashley 14-Jun-2017 13:03:00
--- NOTE | 2017-06-12 15:48 | ASMTCMCOM ---
CM Note CM Note Notes: 06/12/2017 Case Management Note Met pt during rounds today and reviewed chart. There are no case management d/c needs identified d/t pt age, employment status, activity levels prior to admission and family support. There are not PT or OT evals ordered at this time. Case Management d/c poc: independent with follow up as directed. Case Management available if needs change. Date Signed: 06/12/2017 03:47 PM Electronically Signed By:China Shi RN
--- NOTE | 2017-06-12 16:32 | ECHO ---
[email or web address] [address] Main: [phone] Fax: [email or web address] Echocardiogram Name: LUIS ALBERTO HUA MR#: [id number] Study Date: 06/11/2017 Study Time: 04:57 PM Date of : 1960 Age: 57 year(s) Height: 172.7 cm (68 in.) Weight: 96.62 kg (213 lb.) BSA: 2.1 m2 Gender: Male Examination: Echo Indication: HX CAD/s/p CABG 04/29/17, 144 lightheadedness/fatigue/EKG changes and elevated troponin Image Quality: Contrast: Requested by: James Davidson BP: 144 mmHg/86 mmHg Heart Rate: Rhythm: Indication: HX CAD/s/p CABG 04/29/17, lightheadedness/fatigue/EKG changes and elevated troponin Procedure Staff Cartography Supervisor: Pinky Thomas [facility] Reading Physician: Ajith Wang Requesting Provider: Conclusions: Normal size left ventricle. Mild to moderate LVH. The ejection fraction is estimated to be 65 %. Grade 1 diastolic dysfunction (abnormal relaxation). LV septal wall is consistent with conduction abnormality post op.. Normal size right ventricle. RV apex appears akinetic.. Measurements: Chambers Valvular Assessment AV/MV Valvular Assessment TV/PV Normal Normal Normal Name Value Range Name Value Range Name Value Range Ao Mariana (MM): 3.5 cm (2.2 cm-3.7 AV Vmax: 1.24 m/s (1 m/s-1.7 cm) m/s) IVSd (2D): 1.5 cm (0.6 cm-1.1 AV maxP mmHg ( - ) cm) AV meanP mmHg ( - ) LVDd (2D): 5.0 cm (4.2 cm-5.9 MV E Vmax: 0.42 m/s ( - ) cm) MV A Vmax: 0.67 m/s ( - ) LVPWd (2D): 1.0 cm (0.6 cm-1 MV E/A: 0.63 ( - ) cm) EF Range: 65 % Continued Measurements: Chambers Valvular Assessment AV/MV Name Value Name Value LADs: 4.4 cm MV E/E' Septal: 6.90 MV E/E' Lateral: 8.70 Patient: LUIS ALBERTO HUA Study Date: 06/11/2017 Page 1 of 2 04:57 PM Findings: Left Ventricle: Normal size left ventricle. Mild to moderate LVH. Normal global systolic LV function. The ejection fraction is estimated to be 65 %. Grade 1 diastolic dysfunction (abnormal relaxation). LV septal wall is consistent with conduction abnormality post op.. Right Ventricle: Normal size right ventricle. RV apex appears akinetic.. Left Atrium: The left atrium is normal in size. Right Atrium: The right atrium is normal in size. Mitral Valve: The mitral valve is normal in appearance and function. Aortic Valve: The aortic valve is normal in appearance and function. Tricuspid Valve: The tricuspid valve is normal in appearance and function. Pulmonic Valve: The pulmonic valve is normal in appearance and function. Trivial pulmonic valve regurgitation. Aorta: The aorta is normal. Pericardium: No pericardial effusion. (No Signature Object) Patient: LUIS ALBERTO HUA Study Date: 06/11/2017 Page 2 of 2 04:57 PM [id number]
--- NOTE | 2017-06-12 17:44 | SOAPPROG ---
LYNDA Progress Note Assessment/Plan: 1. Chest pain - Pt reports 2 types of chest pain. The first is pleuritic and is worse with respiration and palpation. Suspect this is costochondritis secondary to recent open heart surgery. The second type of pain is a tightness. It worse when lying down. It is not like his previous angina and is not associated with exertion. Suspect the second type of pain is secondary to Dresslers. However, he does have a mild troponin elevation and may have different anginal symptoms secondary to the surgery. --> Will continue indomethacin and start colchicine --> Stress test in am for risk stratification 2. Elevated troponin - Pt has a mild flat troponin elevation. DDx includes post surgery, Dresslers, and potential ischemia. Will evaluate and manage as noted above. Subjective: + chest pain R chest, well localized, worse with respiration No orthopnea or PND + dizziness + chest pain central, not like previous angina, not associated with exertion. Worse on back. Improved on side or leaning forward. Objective: Vital Signs Temp Pulse Resp BP Pulse Ox 36.8 C 84 16 112/60 95 06/12/17 15:13 06/12/17 15:13 06/12/17 15:13 06/12/17 15:13 06/12/17 15:13 Laboratory Results 06/12/17 04:24 06/12/17 04:24 06/11/17 06/12/17 06/13/17 05:59 05:59 05:59 Intake Total 400 250 Balance 400 250 Physical Exam - Physical Exam General Appearance: alert, no apparent distress Respiratory: lungs clear Cardiac/Chest: regular rate, rhythm, other (No rubs) Abdomen: non-tender, soft Skin: normal color Extremities: No pedal edema Neuro/Psych: alert, oriented x 3 ICD10 Worksheet Patient Problems: Problems Problem Status Onset Chest pain Acute Elevated troponin Acute Unstable angina Acute
[2017-06-13] MEDS: INDOMETHACIN 25 MG CAP PO SCH ×2 (08:02→20:44)
[2017-06-13] MEDS: COLCHICINE 0.6 MG CAP/TAB PO SCH ×2 (08:03→20:45)
[2017-06-13] MEDS: SENNOSIDES/DOCUSATE SODIUM TAB PO SCH ×2 (08:03→21:43)
[2017-06-13] MEDS: ALLOPURINOL 300 MG TAB PO SCH (08:03)
[2017-06-13] MEDS: ASPIRIN 81 MG CHEWABLE TAB PO SCH (08:03)
[2017-06-13] MEDS: ATORVASTATIN CALCIUM 40 MG TAB PO SCH (08:03)
[2017-06-13] MEDS: ENOXAPARIN 40 MG/0.4 ML SYR SC SCH (08:04)
--- NOTE | 2017-06-13 12:02 | CPR ---
[f rep st] NONINVASIVE CARDIAC PROCEDURE REPORT PROCEDURE PERFORMED: Exercise treadmill myocardial perfusion imaging study. INDICATION FOR PROCEDURE: Episode of chest pressure, known history of CAD status post CABG, April 2017. PRE: After obtaining informed consent, patient was placed on electrocardiogram. Initial EKG shows s inus rhythm, normal axis, noted mildly inverted T-waves in lead I, and flattened T-waves in lead II. Patient denies any chest pressure, shortness of breath, or symptoms suggestive of ischemia. Initial oxygenation greater than 96%. Initial blood pressure 130/80. STRESS: The patient was placed on the exercise treadmill, following standard Yvan protocol the foll owing findings: 1. The patient exercised for 7 minutes. 2. 8.3 METs. 3. Patient obtained a heart rate of 154 beats per minute, which was 94% of MPHR. 4. At peak exercise, noted upsloping ST depression in inferolateral leads, up to 1 mm. 5. Patient had no chest pain or symptoms suggestive of ischemia with exercise. 6. SpO2 greater than 90%. 7. Occasional PVC was noted during stress and rest, but no other malignant arrhythmias. 8. BP response: rest 130/80, peak 148/68. 9. Test was stopped due to maximum effort. 10. Ramirez treadmill score of 2, placing patient at intermediate cardiovascular risk. RECOVERY: The patient recovered for 5 minutes. EKG returned back to baseline, occasional premature ventricular contractions noted. Vital signs were stable. The patient remained asymptomatic. Within 5 minutes the patient's heart rate and blood pressure were back to baseline, asymptomatic, vital sig ns stable, he was taken to nuclear medicine for post-stress MPI imaging. IMPRESSION: 57-year-old male with no history of coronary artery disease with recent bypass surgery, admitted to hospital for chest pain with some mild shortness of breath during an exercise treadmill. The patient noted, at peak exercise, to have noted upsloping ST depression of 1 mm in inferolateral leads. This would be equivocal, but due to his underlying resting EKG, the specificity of the exerci se treadmill could be potentially lower. At this time, discussion with Dr. Greene, post-testing, fel t best for further evaluation by MPI imaging with results pending on that. /[id number]/MODL
[2017-06-13] MEDS: NEBIVOLOL HCL 5 MG TAB PO SCH (12:21)
[2017-06-13] MEDS ORDERED: FLU VACC QS 2017-18 (3YR+)/PF 0.5 ML SYR (FLUARIX QUAD) IM ONE (12:40)
[2017-06-13] MEDS ORDERED: PNEUMOCOCCAL 0.5ML VACCINE VIAL IM ONE (12:40)
--- NOTE | 2017-06-13 17:43 | SOAPPROG ---
LYNDA Progress Note Assessment/Plan: 1. Chest pain - Pt reports 2 types of chest pain. The first is pleuritic and is worse with respiration and palpation. Suspect this is costochondritis secondary to recent open heart surgery. The second type of pain is a tightness. It worse when lying down. It is not like his previous angina and is not associated with exertion. Suspect the second type of pain is secondary to Dresslers. However, he does have a mild troponin elevation and may have different anginal symptoms secondary to the surgery. Symptoms improved after starting colchicine. Stress testing is notable for an inferolateral infarction as well as an anteroseptal infarction with chantel-infarct ischemia. LVEF is reduced at 44%. Reviewed treatment options including medical management and angiogram. Pt wishes to persue angiogram as he has not felt right over the last week. --> Continue indomethacin and colchicine --> Angiogram in am to evaluate bypass grafts. 2. Elevated troponin - Pt has a mild flat troponin elevation. DDx includes post surgery, Dresslers, and potential ischemia. Will evaluate and manage as noted above. Greater than 50% of this 30 min visit was spent discussing clinical condition, findings of testing, and treatment options. Subjective: continued R sided chest pain c/w costochondritis continued chest pressure improved with colchicine No orthopnea or PND No symptoms with exertion Objective: Vital Signs Temp Pulse Resp BP Pulse Ox 36.5 C 92 17 107/65 93 06/13/17 12:00 06/13/17 12:00 06/13/17 12:00 06/13/17 12:00 06/13/17 12:00 Laboratory Results 06/12/17 04:24 06/12/17 04:24 06/12/17 06/13/17 06/14/17 05:59 05:59 05:59 Intake Total 400 650 Balance 400 650 Physical Exam - Physical Exam General Appearance: alert, no apparent distress Respiratory: normal breath sounds Cardiac/Chest: regular rate, rhythm Extremities: No pedal edema Neuro/Psych: alert, oriented x 3 ICD10 Worksheet Patient Problems: Problems Problem Status Onset Chest pain Acute Elevated troponin Acute Unstable angina Acute
--- NOTE | 2017-06-13 18:07 | PDMN ---
Medical Necessity Medical necessity: ongoing CP with further eval and monitoring, cardio consult needed. > 2 midnights
--- NOTE | 2017-06-13 18:12 | HOSPPROG ---
Hospitalist Progress Note Assessment/Plan: DIAGNOSES: -Chest wall pain and internal pleuritic inflammatory sound thing chest pain, with suspicion for ribcage and possibly pericardial inflammatory pain -he is responding nicely to a combination of his chronic Indocin and new colchicine. There are no signs of complications of related to this -new exertional chest pressure today, with minimal elevations of troponin at admission and with suggestion of possible ischemia on myocardial perfusion imaging today -he is 1 month out from bypass surgery, question whether he could potentially have some graft failure I met and examined the patient with Dr Greene, and we had very long discussion of his sxs, diff dx, further evaluation and management options. 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 However today he notably has had some more pressure-like discard in his chest with walking in the hallway. He did have a treadmill stress test with perfusion imaging had no symptoms on the treadmill but has some evidence of some ischemia on the perfusion images. 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: Sinus Exam: alert oriented skin warm dry color ok resps not labored lungs clear BSs Chest wall with some mild tenderness of ribs 2 3 and 4 at the costal sternal margin area with no visible or palpable abnormality there, this is mild tenderness heart regular abd soft nondistended nontender, bowel sounds present limbs warm, no edema iv site ok Troponins all in the indeterminate range at 0.03 and 0.04 CBC and Chem panel remain normal EKGs with no acute ischemic appearing abnormalities Objective: Vital Signs Temp Pulse Resp BP Pulse Ox 36.3 C 82 18 115/70 95 06/13/17 16:00 06/13/17 16:00 06/13/17 16:00 06/13/17 16:00 06/13/17 16:00 Laboratory Results 06/12/17 04:24 06/12/17 04:24 06/12/17 06/13/17 06/14/17 06:59 06:59 06:59 Intake Total 334 421 3621 Balance 797 450 8533 - Time Spent With Patient Time Spent with Patient: greater than 35 minutes Time Spent with Patient: Greater than 35 minutes spent on this patients care, greater than 50% of time spent counseling, educating, and coordinating care regarding the above mentioned plan. ICD10 Worksheet Patient Problems: Problems Problem Status Onset Chest pain Acute Elevated troponin Acute Unstable angina Acute
[2017-06-13] MEDS: ACETAMINOPHEN 325 MG TAB PO PRN (20:50)
[2017-06-14 05:14] VITALS: O2SAT 94
[2017-06-14] MEDS: INDOMETHACIN 25 MG CAP PO SCH (07:32)
[2017-06-14] MEDS: ASPIRIN 81 MG CHEWABLE TAB PO SCH (07:32)
[2017-06-14] MEDS: COLCHICINE 0.6 MG CAP/TAB PO SCH (07:32)
[2017-06-14] MEDS: NEBIVOLOL HCL 5 MG TAB PO SCH (07:32)
[2017-06-14] MEDS: ATORVASTATIN CALCIUM 40 MG TAB PO SCH (07:33)
[2017-06-14] MEDS: SENNOSIDES/DOCUSATE SODIUM TAB PO SCH (07:34)
[2017-06-14] MEDS: ALLOPURINOL 300 MG TAB PO SCH (07:36)
[2017-06-14 08:20] LABS: INR 1.12 (0.83-1.16); PROTIME(PATIENT) 14.6 SEC (12.0-15.0)
[2017-06-14] MEDS: ENOXAPARIN 40 MG/0.4 ML SYR SC SCH (09:23)
--- NOTE | 2017-06-14 09:27 | PDPROPOC ---
Sedation Plan of Care Sedation Plan of Care: vital signs stable, mental status noted, patient educated of risks, benefits, alternatives, patient can tolerate sedation ASA Classification: ASA 2 Planned drugs: fentanyl, midazolam Mallampati Score: Class 2 Mallampati Reference Image: Patient passed 3-3-2 rule?: Yes
[2017-06-14] MEDS ORDERED: fentaNYL 100 MCG/2 ML INJ ONE (09:29)
[2017-06-14] MEDS ORDERED: MIDAZOLAM 2 MG/2 ML VIAL ONE (09:29)
[2017-06-14] MEDS ORDERED: LIDOCAINE 1% 300 MG/30 ML SDV ONE (09:29)
[2017-06-14] MEDS ORDERED: IOPAMIDOL (ISOVUE-370) 150 ML BTL IV ONE (09:30)
[2017-06-14] MEDS ORDERED: ATROPINE SULFATE 1 MG/10 ML SYR IVP PRN (11:09)
[2017-06-14] MEDS ORDERED: NITROGLYCERIN 0.4 MG BTL SL PRN (11:09)
--- NOTE | 2017-06-14 11:16 | CPIP ---
[f rep st] INVASIVE CARDIAC PROCEDURE DATE OF PROCEDURE: 06/14/2017 PROCEDURE: 1. Coronary angiography. 2. Bypass graft angiography. 3. Left ventriculography. INDICATION: 1. Acute coronary syndrome with an elevated troponin. 2. Abnormal nuclear stress test which was intermediate risk. ACCESS: Patient was prepped and draped in the sterile fashion. 1% lidocaine was used to anesthetize the right inguinal region. A 6-Czech introducer sheath was placed selectively into the right commo n femoral artery via modified Seldinger technique. CORONARY ANGIOGRAPHY: A 6-Czech JL4 was advanced to the left main coronary artery and images obtain ed. The left main coronary artery bifurcated into LAD and circumflex coronary arteries. The left ma in coronary artery had a distal 50% stenosis present. The left anterior descending coronary artery w as diffusely diseased. In the ostial segment, there was a discreet 85% stenosis present and in the m id vessel, there was a discrete 90% stenosis present. The circumflex coronary artery is nondominant. Circumflex coronary artery had an ostial 50% stenosis present. Circumflex coronary artery gave ris e to one prominent OM branch. The OM branch had a proximal 70% stenosis present. A 6-Czech JR4 was advanced to the right coronary artery and images obtained. The right coronary artery is dominant. The right coronary artery had a proximal 90% stenosis present. BYPASS GRAFT ANGIOGRAPHY: A 6-Czech JR4 was used to engage the saphenous vein graft to OM artery. The saphenous vein graft to OM artery was widely patent. The 6-Czech JR4 was used to engage the lef t subclavian artery. The 6-Czech JR4 was exchanged for 6-Czech KACEY catheter. The 6-Czech KACEY cat heter was used to engage the CASANOVA to LAD graft. The CASANOVA to LAD graft was widely patent. The 6-Fren ch JR4 was then used to engage the JERMAINE to RCA graft. The JERMAINE to RCA graft was widely patent. LEFT VENTRICULOGRAPHY: A 6-Czech pigtail catheter was advanced in the left ventricle and images obt ained. The left ventricle is normal in size and systolic function. Estimated ejection fraction was 60%. COMPLICATIONS: None. CONCLUSIONS: 1. Three-vessel coronary artery disease. 2. Normal left ventricular size and systolic function. 3. Patent bypass grafts to the LAD, OM 1 and right coronary arteries. /[id number]/MODL
--- NOTE | 2017-06-14 15:32 | PDDCSUM ---
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 Paul Greene of [facility] PROCEDURES: Lexiscan stress test with myocardial perfusion imaging Coronary angiography with imaging of both chippewa-cree vessels and bypass graft HOSPITAL COURSE SUMMARY: This patient who had bypass surgery a month ago and was doing well at cardiac rehabilitation started having some chest pain which showed up once again at his rehab session and he was sent to the hospital for further evaluation. The pain was of 2 components. 1 was a localized rib cage pain on the right-sided ribs approximately 2 -4 lateral to the sternum, somewhat reproduced by palpation and increased with a breath. The other was a more diffuse pain across the upper anterior chest that was also pleuritic and was also somewhat sharp, clearly also increased with lying supine. There is no cough or fever. There has been no injury. There had been good compliance with his recommended physical activities. He was not short of breath did have signs of heart failure. There were indeterminate elevations of troponin that were fairly flat over time. He did not have arrhythmia. His sternum and incision looked excellent. The patient underwent myocardial perfusion imaging which showed some abnormalities but no evidence of reversible ischemia. 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 He was already on twice daily Indocin which was not helping. We added colchicine and this promptly improved his symptoms quite a bit. Because of concern we watched him carefully for any arrhythmia other signs and while he was here on the unit he did have some exertional chest pressure walking in the hallway. With his overall story it was elected to taking the angiography which shows no evidence of graft stenosis or failure or changes in his known chippewa-cree vessel disease. At this point the patient is felt stable for discharge to home. Will continue on colchicine and will follow up in Cardiology Clinic for resolution of his inflammatory pain PENDING TEST RESULTS: None MEDICATION CHANGES: Addition of colchicine 0.6 mg twice daily Discontinue amlodipine Discontinue metoprolol Addition of Bystolic 2.5 mg daily FOLLOW-UP PLAN: Cardiology Clinic next week Greater than 35 minutes bedside and care coordination time toda
[2017-06-14 15:48] VITALS: BP 100/61; PULSE 78; RESP 16; TEMP 97.5
--- NOTE | 2017-06-15 10:15 | ASDISCHSUM ---
Discharge Information Plan Status:Home with No Needs Medically Cleared to Leave:06/13/2017 Discharge Date:06/14/2017 06:25 PM CM D/C Disposition: ADT D/C Disposition:Home, Routine, Self-Care Projected Discharge Date:06/14/2017 12:00 AM Transportation at D/C: Discharge Delay Reason: Follow-Up Date:06/14/2017 12:00 AM Discharge Slot: Final Diagnosis: Placement Information Patient Contact Information Contact Name:JACKIE Relationship: Address:[address] [place] Work Phone: City:[place] Alternate Phone: [facility]/Zip Code:[place] [address] Email: Financial Information Financial Class:HMO and PPO Plans Primary Plan Desc:[employer] Primary Plan Number:[id number] Secondary Plan Desc: Secondary Plan Number: Assessment Information [facility] CM Progress Note CM Note CM Note Notes: 06/12/2017 Case Management Note Met pt during rounds today and reviewed chart. There are no case management d/c needs identified d/t pt age, employment status, activity levels prior to admission and family support. There are not PT or OT evals ordered at this time. Case Management d/c poc: independent with follow up as directed. Case Management available if needs change. Date Signed: 06/12/2017 03:47 PM Electronically Signed By:China Shi RN Intervention Information
== END 2017-06-14 18:25 | disposition home or self-care (01) | DRG 287 ==
LOC: F2W 17:18 → OBSVTOIN 06-12 20:33
PROVIDERS: ADMIT Hospitalist; ATTEND Internal Medicine
PROC: B2111ZZ Fluoroscopy of Multiple Coronary Arteries using Low Osmolar Contrast (ICD-10-PCS; principal; 2017-06-14)
PROC: 4A023N7 Measurement of Cardiac Sampling and Pressure, Left Heart, Percutaneous Approach (ICD-10-PCS; principal; 2017-06-14)
PROC: B2181ZZ Fluoroscopy of Left Internal Mammary Bypass Graft using Low Osmolar Contrast (ICD-10-PCS; principal; 2017-06-14)
PROC: B2171ZZ Fluoroscopy of Right Internal Mammary Bypass Graft using Low Osmolar Contrast (ICD-10-PCS; principal; 2017-06-14)
PROC: B21F1ZZ Fluoroscopy of Other Bypass Graft using Low Osmolar Contrast (ICD-10-PCS; principal; 2017-06-14)
DX: I97.0 Postcardiotomy syndrome (principal); R07.81 Pleurodynia; R79.89 Other specified abnormal findings of blood chemistry; R53.83 Other fatigue; I25.10 Atherosclerotic heart disease of native coronary artery without angina pectoris; Z95.1 Presence of aortocoronary bypass graft; M10.9 Gout, unspecified; K59.00 Constipation, unspecified; I11.0 Hypertensive heart disease with heart failure; I42.2 Other hypertrophic cardiomyopathy; R73.03 Prediabetes; E78.00 Pure hypercholesterolemia, unspecified; I50.32 Chronic diastolic (congestive) heart failure
CPT/HCPCS: A9500; C1760; C1769; G0008; G0009; G0378; J1644; J1650; J2250; J3010; Q9967